=== PATIENT | male | born 1945 | race Caucasian/White ===

== ENCOUNTER 2019-06-27 09:53 | Day surgery (SDC) | payer OTHER ==
[~2019-06-27] VITALS: Ht 198.1 cm; Wt 68.0 kg
[~2019-06-27 09:53] MED LIST: ALBU90OI61 INH; ATOR80 PO; Aspirin325 MG PO; CLOP75 PO; LISI5 PO; NITR.4SL SL; Naprosyn500 MG PO; PROZAC20 MG PO; Percocet 5-3251 EACH PO; TRAZ100 PO; Toprol Xl25 MG PO
--- NOTE | 2019-06-27 10:15 | NUR ---
AMBULATED TO RECOVERY ROOM. SEE NOTES.
[2019-06-27] MEDS ORDERED: THERA1 EACH PO (10:24)
[2019-06-27] MEDS ORDERED: EZET10 PO (10:25)
--- NOTE | 2019-06-27 10:48 | NUR ---
Advanced directive completed by patient. on chart.
--- NOTE | 2019-06-27 16:10 | NUR ---
ADMIT- PT ADMITTED TO ICU FROM [facility] IN BED. AWAKE, ALERT, COOPERATIVE, NO DISTRESS, DENIES PAIN OR SOB. RESPIRATIONS UNLABORED. NSR, BP STABLE. ABDOMEN SOFT. RIGHT FEMORAL SITE DI WITH SMALL AMOUNT OLD BLOOD ON DRESSING. PEDAL PULSES PALPABLE, FEET WARM, DENIES ANY NUMBNESS OR TINGLING NOW. PIV INTACT
--- NOTE | 2019-06-27 16:38 | NUR ---
PT NAUSEATED WITH 100 CC YELLOWISH EMESIS. ASSISTED TO REPOSITION, HAD SAT UP, SITE INTACT WITHOUT ANY BLEEDING. C/O SEVERE ABDOMINAL PAIN-STATES LIKE"GAS" PAINS, TEARFUL. CALLED DR. GARCIA. WILL BE HERE, IV ZOFRAN GIVEN FOR NAUSEA-IS RELIEVED NOW. FAMILY AT BEDSIDE
--- NOTE | 2019-06-27 16:54 | NUR ---
STATES NAUSEA RELIEVED, STATES PAIN "COMES IN WAVES", DOING OK NOW. VS STABLE. SITE INTACT. PEDAL PULSES PALPABLE
--- NOTE | 2019-06-27 17:54 | NUR ---
DR GARCIA HERE-ASSESSED PT. PT AWAKE, ALERT, STATES FEELS PAIN WAS "GAS PAIN" AND WAS BETTER AFTER PASSING FLATUS. VSS, NO S/S BLEEDING. MAINTAINING PRECAUTIONS.
--- NOTE | 2019-06-27 18:37 | NUR ---
PT RESTING, STATES FEELS MUCH BETTER NOW. NO NAUSEA, STATES PAIN GONE AND IS ABLE TO REST. VSS. CONTINUE TO MONITOR
--- NOTE | 2019-06-27 20:55 | NUR ---
CARE ASSUMED REPORT RECEIVED, CARE ASSUMED AT 1900 FROM ROMIE MCGHEE. PT ON BEDREST AFTER PROCEDURE, BED FLAT. PT DENIES PAIN/DISCOMFORT. ALERT AND ORIENTED. VITALS STABLE. SEE SHIFT ASSESSMENT. RIGHT FEMORAL ACCESS SITE STABLE, SEE CATH SITE MANAGEMENT. PT AGREEABLE TO PRECAUTIONS, AGREES TO CALL FOR NEEDS. FAMILY AT BEDSIDE FOR SHORT VISIT THIS EVENING.
--- NOTE | 2019-06-27 23:58 | NUR ---
BLOOD PRESSURE PT'S BLOOD PRESSURE SLIGHTLY LOW BUT MAP'S REMAIN GREATER THAN 65. PT DENIES DIZZINESS/SHORTNESS OF BREATH. GROIN SITE ASSESSMENTS UNCHANGED. NO SIGNS OF BLEEDING. WILL CONTINUE TO MONITOR CLOSELY.
--- NOTE | 2019-06-28 04:36 | NUR ---
PROVIDER COMMUNICATION ATTEMPTED TO CONTACT DR. GARCIA REGARDING PT'S BLOOD PRESSURE TREND, INCREASED PVC'S, AND TO ATTEMPT TO ACQUIRE MORNING LAB ORDERS. AWAITING RETURN PHONE CALL. PT REMAINS ALERT, ORIENTED AND DENIES DIZZINESSS/SOB. WILL CONTINUE TO MONITOR CLOSELY.
--- NOTE | 2019-06-28 06:15 | NUR ---
SUMMARY SINCE PREVIOUS NOTE, BLOOD PRESSURE HAS IMPROVED. SEE FLOWSHEET. PT HAS DENIED DIZZINESS, SHORTNESS OF BREATH AND PAIN THROUGOUT ENTIRE NIGHT. OTHERWISE, VITALS STABLE. ASSESSMENTS UNCHANGED. GROIN SITE STABLE, PT MOVING FREELY IN BED. PT CALLING APPROPRIATELY FOR NEEDS.
--- NOTE | 2019-06-28 07:05 | NUR ---
REPORT TO ROMIE GRACE TO ASSUME CARE. BEDSIDE ROUNDS COMPLETED.
--- NOTE | 2019-06-28 09:30 | NUR ---
ASSUMED CARE: REPORT RECEIVED FROM RAFAELA Rodgers RN. ASSUMED CARE OF THIS PT AT APPROX 0700. ON ASSESSMENT, THE PT IS RESTING QUEITLY. HE AWAKENS EASILY TO VERBAL STIMULUS & IS ALERT/ ORIENTED. R FEMORAL PUNCTURE SITE IS WNL S/P PERIPHERAL REVASC. AREA HAS A SMALL AMNT OF DRIED BLOOD THAT IS UNCHANGED FROM PREVIOUS SHIFT, PER REPORT. NO NEW BLEEDING, BRUISING OR HEMATOMA FORMATION NOTED. PT DENIES N/T TO BLE, STS HAVING NO PAIN. PLAN IS FOR D/C HOME THIS AM. WILL CONTACT DR GARCIA TO GET VERIFY & GET ORDERS. WILL CONTINUE TO MONITOR & UPDATE NEEDED.
--- NOTE | 2019-06-28 12:02 | NUR ---
DISCHARGE TO HOME: D/C TEACHING HAS BEEN COMPLETED. PT & VERBALIZE UNDERSTANDING. PIV & ALL MONITORS HAVE BEEN REMOVED. DRESSING TO GROIN SITE IS CDI & SITE IS WNL. D/C PACKET & ALL BELONGINGS HAVE BEEN TAKEN OUT W/ PT. PT AMBULATES OUT OF UNIT W/ THIS RN.
== END 2019-06-28 11:46 | disposition home or self-care (01) ==
LOC: MHTC 09:53 → ICUW 09:53 → MHTC 10:00 → ICUW 14:57 → MHTC 19:27 → ICUE 19:28 → MHTC 06-28 11:46 → ICUE 06-28 11:46
DX: I70.1 Atherosclerosis of renal artery (principal); I70.0 Atherosclerosis of aorta; I25.10 Atherosclerotic heart disease of native coronary artery without angina pectoris; I10 Essential (primary) hypertension; D64.9 Anemia, unspecified; E78.5 Hyperlipidemia, unspecified; F41.9 Anxiety disorder, unspecified; F17.210 Nicotine dependence, cigarettes, uncomplicated; Z79.01 Long term (current) use of anticoagulants; Z79.82 Long term (current) use of aspirin; Z79.899 Other long term (current) drug therapy
CPT/HCPCS: 37236; 75630; 75774; 85347; 99152; 99153; C1725; C1769; C1876; C1887; C1894; J0360; J1644; J2250; J2405; J2720; J3010; J7030; Q9967

== ENCOUNTER 2022-05-18 08:29 | Day surgery (SDC) | payer OTHER ==
[~2022-05-18] VITALS: Ht 198.1 cm; Wt 66.7 kg
[~2022-05-18 08:29] MED LIST changes: +CILO100 PO; +EZET10 PO; +THERA1 EACH PO; +XARELTO20 MG PO
--- NOTE | 2022-05-18 12:24 | NUR ---
PT GIVEN HYDRALAZINE 10 MG IVP FOR ELEVATED BP PER DR ORDER.
--- NOTE | 2022-05-18 13:15 | NUR ---
DISCHARGE REVIEWED WITH PT, VERBALIZES UNDERSTANDING. SALINE LOCK REMOVED WITH CATHETER INTACT. PT GETTING DRESSED AT THIS TIME. BP HAS COME DOWN TO 150'S/90'S. L PT SITE STABLE.
--- NOTE | 2022-05-18 13:27 | NUR ---
PT TO PRIVATE VEHICLE PER W/C WITH ONE STAFF. L PT SITE STABLE.
== END 2022-05-18 13:30 | disposition home or self-care (01) ==
LOC: MHTC 08:29
DX: I70.213 Atherosclerosis of native arteries of extremities with intermittent claudication, bilateral legs (principal); I77.1 Stricture of artery; I65.21 Occlusion and stenosis of right carotid artery; I10 Essential (primary) hypertension; E78.5 Hyperlipidemia, unspecified; I25.10 Atherosclerotic heart disease of native coronary artery without angina pectoris; F17.210 Nicotine dependence, cigarettes, uncomplicated; F43.10 Post-traumatic stress disorder, unspecified; X58.XXXA Exposure to other specified factors, initial encounter; Z95.5 Presence of coronary angioplasty implant and graft; Z95.828 Presence of other vascular implants and grafts; Z87.891 Personal history of nicotine dependence
CPT/HCPCS: 75716; 75774; 76937; 99152; 99153; C1725; C1769; C1887; C1894; C9764; J0360; J1644; J2250; J3010; J7030; J7040; Q9967

== ENCOUNTER 2023-02-11 06:49 | Observation (INO) | payer OTHER ==
[~2023-02-11] VITALS: Ht 198.1 cm; Wt 62.5 kg
[2023-02-11 07:37] LABS: BASOPHILS ABSOLUTE AUTO 0.03 K/mm3 (0.00-0.23); BASOPHILS PERCENT AUTO 0 % (0-2); EOSINOPHILS ABSOLUTE AUTO 0.36 K/mm3 (0.00-0.68); EOSINOPHILS PERCENT AUTO 4 % (0-6); Hematocrit 35.2 % (37.0-53.0); Hemoglobin 11.7 g/dL (13.5-17.5); IMMATURE GRAN ABSOLUTE AUTO 0.03 K/mm3 (0.00-0.10); IMMATURE GRAN PERCENT AUTO 0 % (0-1); LYMPHOCYTES ABSOLUTE AUTO 2.03 K/mm3 (0.84-5.20); LYMPHOCYTES PERCENT AUTO 20 % (21-46); MONOCYTES ABSOLUTE AUTO 1.02 K/mm3 (0.16-1.47); MONOCYTES PERCENT AUTO 10 % (4-13); Mean Corpuscular HGB 33.7 pg (26.0-34.0); Mean Corpuscular HGB Conc 33.2 g/dL (31.5-36.5); Mean Corpuscular Volume 101 fL (80-100); Mean Platelet Volume 9.8 fL (9.1-12.4); NEUTROPHILS ABSOLUTE AUTO 6.59 K/mm3 (1.96-9.15); NEUTROPHILS PERCENT AUTO 66 % (41-73); Platelet Count 149 K/mm3 (150-400); RDW Coefficient Variation 13.7 % (11.7-14.2); RDW Standard Deviation 50.9 fL (35.1-46.3); Red Blood Cell Count 3.47 M/mm3 (4.30-5.90); White Blood Cell Count 10.06 K/mm3 (4.00-11.30)
[2023-02-11 07:52] LABS: Albumin, Blood 3.6 g/dL (3.4-5.0); Albumin/Globulin Ratio 1.1 (0.8-1.8); Bilirubin, Total 0.4 mg/dL (0.1-1.0); Bun/Creatinine Ratio 20.8 (12.0-20.0); Calcium, Blood 9.2 mg/dL (8.5-10.1); Creatinine, Blood 1.44 mg/dL (0.60-1.20); Globulin, Blood 3.4 g/dL (2.2-4.0); Potassium, Blood 4.2 mmol/L (3.5-5.5)
[2023-02-11 12:41] VITALS: BP 161/109
[2023-02-11 14:58] VITALS: BP 220/96
[2023-02-11 15:20] VITALS: BP 150/99
--- NOTE | 2023-02-11 18:45 | NUR ---
SHIFT SUMMARY: PATIENT ARRIVES TO ROOM AT AROUND 1228 FROM ER FOR DX OF CHF. PATIENT A&OX4. CALM, PLEASANT AND COOPERATIVE c CARE. USES CALL LIGHT APPROPRIATELY AND ABLE TO MAKE NEEDS KNOWN. PATIENT DENIES CP/PRESSURE, SOB, N/V AND GENERALIZED PAIN. ON TELE, SR HR OF 68 BPM c PVC, PER SILVER SERVICE WAITER DAVID. PATIENT ON 2L OF O2 VIA NC c SPO2 RANGES 95-100%. AT AROUND 1600 O2 WAS TITRATED TO 1L VIA NC c SPO2 RANGES 94-95%. LUNGS HAS FINE CRACKLES T/O TO AUSCULTATIONS. RCEIVED SCHEDULED MEDS PER EMAR. PATIENT HAD 700 MLS AND 2 UNMEASURED VOID SINCE ADMITTED TO THE UNIT. VITAL SIGNS REVIEWED. PATIENT IS CONTINENCE AND USES URINAL INDEPENDENTLY. CALL LIGHT IN REACH.
[2023-02-11 19:41] VITALS: BP 163/116
[2023-02-12 03:10] VITALS: BP 157/88
[2023-02-12 05:05] LABS: BASOPHILS ABSOLUTE AUTO 0.03 K/mm3 (0.00-0.23); BASOPHILS PERCENT AUTO 0 % (0-2); EOSINOPHILS ABSOLUTE AUTO 0.12 K/mm3 (0.00-0.68); EOSINOPHILS PERCENT AUTO 1 % (0-6); Hematocrit 36.6 % (37.0-53.0); Hemoglobin 12.8 g/dL (13.5-17.5); IMMATURE GRAN ABSOLUTE AUTO 0.04 K/mm3 (0.00-0.10); IMMATURE GRAN PERCENT AUTO 0 % (0-1); LYMPHOCYTES ABSOLUTE AUTO 1.24 K/mm3 (0.84-5.20); LYMPHOCYTES PERCENT AUTO 11 % (21-46); MONOCYTES ABSOLUTE AUTO 1.42 K/mm3 (0.16-1.47); MONOCYTES PERCENT AUTO 13 % (4-13); Mean Corpuscular HGB 34.4 pg (26.0-34.0); Mean Corpuscular Volume 98 fL (80-100); Mean Platelet Volume 10.3 fL (9.1-12.4); NEUTROPHILS ABSOLUTE AUTO 8.04 K/mm3 (1.96-9.15); NEUTROPHILS PERCENT AUTO 74 % (41-73); Platelet Count 163 K/mm3 (150-400); RDW Coefficient Variation 13.4 % (11.7-14.2); RDW Standard Deviation 48.9 fL (35.1-46.3); Red Blood Cell Count 3.72 M/mm3 (4.30-5.90); White Blood Cell Count 10.89 K/mm3 (4.00-11.30)
--- NOTE | 2023-02-12 05:16 | NUR ---
ASSUMED CARE OF THIS PT AT 0100. HE HAS BEEN SLEEPING FOR THE DURATION OF THIS SHIFT. BED IS IN THE LOW POSITON AND CALL LIGHT IS Ushi. PT HAD A 6 BEAT RUN OF [employer]. CURRENTLY RUNNING IN THE 70'S. PT REPORTED NO SYMPTOMS.
[2023-02-12 05:23] LABS: Base Excess Venous 4.5 mmol/L; Bicarbonate Venous 27.2 mmol/L (24.0-30.0); PCO2 Venous 45.7 mmHg (38-42); pH Blood Venous 7.41 (7.34-7.37)
[2023-02-12 05:27] LABS: Albumin, Blood 3.6 g/dL (3.4-5.0); Bilirubin, Total 0.9 mg/dL (0.1-1.0); Bun/Creatinine Ratio 18.1 (12.0-20.0); Calcium, Blood 9.2 mg/dL (8.5-10.1); Creatinine, Blood 1.55 mg/dL (0.60-1.20); Globulin, Blood 3.5 g/dL (2.2-4.0); Potassium, Blood 3.5 mmol/L (3.5-5.5); Total Protein, Blood 7.1 g/dL (6.4-8.2)
[2023-02-12 07:46] VITALS: BP 180/90
[2023-02-12] MEDS ORDERED: FURO40 PO (10:12)
[2023-02-12] MEDS ORDERED: Lisinopril2.5 MG PO (10:12)
[2023-02-12] MEDS ORDERED: POTA10T PO (10:12)
--- NOTE | 2023-02-12 10:34 | NUR ---
DISCHARGE NOTE- Pt was given verbal and written discharge instructions and acknowledged understanding of them. [place] [facility]. Pt requested the [facility] pharmacy [place]. Pt is currently laying in bed, call light in reach no s&s of distress, awaiting the arrival of his for a ride home. Tele and iv remain in place and will be dc'd prior to pt leaving the hospital. Pt has been instructed to press the call buttong when his arrives.
--- NOTE | 2023-02-12 12:02 | NUR ---
1150 PT WHEELED TO DOOR BY AID.
== END 2023-02-12 11:58 | disposition home or self-care (01) ==
LOC: ER 06:49 → MEDS 06:50
PROVIDERS: Student in an Organized Health Care Education/Training Program; ADMIT Internal Medicine
DX: I13.0 Hypertensive heart and chronic kidney disease with heart failure and stage 1 through stage 4 chronic kidney disease, or unspecified chronic kidney disease (principal); N18.30 Chronic kidney disease, stage 3 unspecified; I50.41 Acute combined systolic (congestive) and diastolic (congestive) heart failure; J96.01 Acute respiratory failure with hypoxia; I34.0 Nonrheumatic mitral (valve) insufficiency; J44.9 Chronic obstructive pulmonary disease, unspecified; R64 Cachexia; E78.5 Hyperlipidemia, unspecified; I70.209 Unspecified atherosclerosis of native arteries of extremities, unspecified extremity; I25.10 Atherosclerotic heart disease of native coronary artery without angina pectoris; F32.9 Major depressive disorder, single episode, unspecified; Z95.5 Presence of coronary angioplasty implant and graft; Z87.891 Personal history of nicotine dependence; Z79.01 Long term (current) use of anticoagulants; Z79.899 Other long term (current) drug therapy
CPT/HCPCS: 36415; 71260; 80053; 82803; 83735; 83880; 84145; 84484; 85025; 85379; 93005; 93010; 94760; 96374-59; 96376; 99285-25; A9270; G0378; J1940; Q9967

== ENCOUNTER 2023-02-15 23:36 | Observation (INO) | payer OTHER ==
[~2023-02-15] VITALS: Ht 198.1 cm; Wt 65.8 kg
[~2023-02-15 23:36] MED LIST changes: +FURO40 PO; +Lisinopril2.5 MG PO; +POTA10T PO
[2023-02-16 00:54] LABS: BASOPHILS ABSOLUTE AUTO 0.02 K/mm3 (0.00-0.23); BASOPHILS PERCENT AUTO 0 % (0-2); EOSINOPHILS ABSOLUTE AUTO 0.14 K/mm3 (0.00-0.68); EOSINOPHILS PERCENT AUTO 3 % (0-6); Hematocrit 28.9 % (37.0-53.0); Hemoglobin 10.1 g/dL (13.5-17.5); IMMATURE GRAN ABSOLUTE AUTO 0.03 K/mm3 (0.00-0.10); IMMATURE GRAN PERCENT AUTO 1 % (0-1); LYMPHOCYTES ABSOLUTE AUTO 0.78 K/mm3 (0.84-5.20); LYMPHOCYTES PERCENT AUTO 15 % (21-46); MONOCYTES PERCENT AUTO 10 % (4-13); Mean Corpuscular HGB 34.6 pg (26.0-34.0); Mean Corpuscular HGB Conc 34.9 g/dL (31.5-36.5); Mean Corpuscular Volume 99 fL (80-100); Mean Platelet Volume 10.1 fL (9.1-12.4); NEUTROPHILS ABSOLUTE AUTO 3.66 K/mm3 (1.96-9.15); NEUTROPHILS PERCENT AUTO 71 % (41-73); Platelet Count 156 K/mm3 (150-400); RDW Standard Deviation 47.1 fL (35.1-46.3); Red Blood Cell Count 2.92 M/mm3 (4.30-5.90); White Blood Cell Count 5.13 K/mm3 (4.00-11.30)
[2023-02-16 01:13] LABS: Albumin, Blood 3.4 g/dL (3.4-5.0); Bilirubin, Total 0.2 mg/dL (0.1-1.0); Bun/Creatinine Ratio 22.6 (12.0-20.0); Calcium, Blood 8.7 mg/dL (8.5-10.1); Creatinine, Blood 2.57 mg/dL (0.60-1.20); Globulin, Blood 3.5 g/dL (2.2-4.0); Total Protein, Blood 6.9 g/dL (6.4-8.2)
[2023-02-16 04:26] LABS: Magnesium, Blood 2.3 mg/dL (1.6-2.4)
--- NOTE | 2023-02-16 11:26 | NUR ---
ADMIT ER PT REPORT RECEIVED. PT ARRIVED VIA GURNEY ACCOMPANIED BY TECH. PT ALERT AND ORIENTED. ABLE TO GET UP AND TRANSFER TO NEW BED. NO COMPLAINTS. CONTINUE POC.
[2023-02-16 15:08] VITALS: BP 155/86
[2023-02-16 15:43] LABS: Bun/Creatinine Ratio 24.4 (12.0-20.0); Calcium, Blood 8.6 mg/dL (8.5-10.1); Creatinine, Blood 1.72 mg/dL (0.60-1.20); Potassium, Blood 4.1 mmol/L (3.5-5.5)
--- NOTE | 2023-02-16 16:29 | NUR ---
Palliative Care Consult for AD/POST. Pt admitted to the hospital for Acute Renal Failure. Pt's medical history and comorbidities include: Diastolic CHF, COPD, PVD, Depression, Hyperlipidemia. Pt recently D/C from the hospital with the new diagnosis of CHF. Pt resting in bed and is A&OX4. Pt reports being and has a daughter who lives out of state. He reports having a son who . Offerd condolences and continued therapeutic listening. Engaged in therapeutic conversation regarding advanced care planning. Educated on disease process including trajectory. Discussed the importance of having routine conversations with PCP and planning for the future as disease progresses including the potential need to consider hospice in the future. Continued therapeutic listening and answered questions. Discussed code status wishes. Educated on life sustaining treatments including risks and implications to CPR/Intubation. Pt reports his wishes are DNR. Discussed completing POLST. He reports plan to consider completing POLST after speaking with his . He reports becomes anxious with forms such as a POLST. Provided POLST to Pt and offered assistance with speaking with . Pt will consider offer. No other concerns reported at this time. Spoke with Dr Villar and discussed case. Placed DNR order in [facility] per V/O from Dr Villar. Palliative Care will remain available.
[2023-02-16 19:28] VITALS: BP 99/76
[2023-02-17 06:05] LABS: BASOPHILS ABSOLUTE AUTO 0.02 K/mm3 (0.00-0.23); BASOPHILS PERCENT AUTO 0 % (0-2); EOSINOPHILS ABSOLUTE AUTO 0.26 K/mm3 (0.00-0.68); EOSINOPHILS PERCENT AUTO 4 % (0-6); Hematocrit 31.3 % (37.0-53.0); Hemoglobin 10.8 g/dL (13.5-17.5); IMMATURE GRAN ABSOLUTE AUTO 0.02 K/mm3 (0.00-0.10); IMMATURE GRAN PERCENT AUTO 0 % (0-1); LYMPHOCYTES ABSOLUTE AUTO 1.64 K/mm3 (0.84-5.20); LYMPHOCYTES PERCENT AUTO 25 % (21-46); MONOCYTES ABSOLUTE AUTO 0.65 K/mm3 (0.16-1.47); MONOCYTES PERCENT AUTO 10 % (4-13); Mean Corpuscular HGB 34.3 pg (26.0-34.0); Mean Corpuscular HGB Conc 34.5 g/dL (31.5-36.5); Mean Corpuscular Volume 99 fL (80-100); NEUTROPHILS ABSOLUTE AUTO 4.05 K/mm3 (1.96-9.15); NEUTROPHILS PERCENT AUTO 61 % (41-73); Platelet Count 157 K/mm3 (150-400); RDW Coefficient Variation 12.8 % (11.7-14.2); RDW Standard Deviation 46.7 fL (35.1-46.3); Red Blood Cell Count 3.15 M/mm3 (4.30-5.90); White Blood Cell Count 6.64 K/mm3 (4.00-11.30)
[2023-02-17 06:34] LABS: Albumin, Blood 3.2 g/dL (3.4-5.0); Albumin/Globulin Ratio 1.1 (0.8-1.8); Bilirubin, Total 0.5 mg/dL (0.1-1.0); Bun/Creatinine Ratio 20.6 (12.0-20.0); Calcium, Blood 8.7 mg/dL (8.5-10.1); Creatinine, Blood 1.41 mg/dL (0.60-1.20); Globulin, Blood 2.8 g/dL (2.2-4.0)
--- NOTE | 2023-02-17 06:48 | NUR ---
AO, VSS, PLEASANT, INDEPENDENT TO TOILET, USED URINAL FREQUENTLY. GI PANEL PENDING TO R/O C DIFF, IN CONTACT PRECAUTIONS. PT DENIES RECENT DIARRHEA. LR 3 LITERS GIVEN YESTERDAY/LAST NIGHT. CALM, NO PRN PAIN MEDS REQUESTED.
[2023-02-17 08:37] VITALS: BP 135/95
[2023-02-17] MEDS ORDERED: METOPROLOL SUCC25 MG PO (12:50)
--- NOTE | 2023-02-17 13:10 | NUR ---
PT DISCHARGE REVIEWED WITH PT AND SPOUSE. VERBALIZED UNDERSTANDING MEDS AND INST. IV PULLED INTACT. TELE REMOVED. PT WHEELED TO DOOR AT 1315
== END 2023-02-17 13:15 | disposition home or self-care (01) ==
LOC: ER 23:36 → MEDS 23:37
PROVIDERS: Family Medicine; Student in an Organized Health Care Education/Training Program; ADMIT Internal Medicine
DX: N17.9 Acute kidney failure, unspecified (principal); I13.0 Hypertensive heart and chronic kidney disease with heart failure and stage 1 through stage 4 chronic kidney disease, or unspecified chronic kidney disease; N18.30 Chronic kidney disease, stage 3 unspecified; I50.30 Unspecified diastolic (congestive) heart failure; R25.2 Cramp and spasm; D64.9 Anemia, unspecified; R91.1 Solitary pulmonary nodule; R64 Cachexia; J44.9 Chronic obstructive pulmonary disease, unspecified; E78.5 Hyperlipidemia, unspecified; Z66 Do not resuscitate; I25.2 Old myocardial infarction; I73.9 Peripheral vascular disease, unspecified; I25.10 Atherosclerotic heart disease of native coronary artery without angina pectoris; Z95.5 Presence of coronary angioplasty implant and graft; Z87.891 Personal history of nicotine dependence; Z79.899 Other long term (current) drug therapy
CPT/HCPCS: 36415; 76770; 80048; 80053; 82550; 82607; 82746; 83605; 83735; 85025; 93005; 93010; 93925; 96361; 96374; 97112; 97162; 99285-25; A9270; G0378; J1170; J7030; J7120

== ENCOUNTER 2023-03-27 06:58 | Day surgery (SDC) | payer OTHER ==
[~2023-03-27] VITALS: Ht 198.1 cm; Wt 64.4 kg
[2023-03-27] VITALS (7 sets, daily range): BP systolic 123–157; BP diastolic 79–100
[~2023-03-27 06:58] MED LIST changes: +METOPROLOL SUCC25 MG PO
--- NOTE | 2023-03-27 12:00 | NUR ---
PT AND VERBALIZED UNDERSTANDING OR WRITTEN AND VERBAL D/C INST. -BLEEDING OR SWELLING L PEDAL AREA. IV REMOVED. PT TAKEN OUT OF THE HRT CENTER VIA W/C.
== END 2023-03-27 12:15 | disposition home or self-care (01) ==
LOC: MHTC 06:58
DX: I70.223 Atherosclerosis of native arteries of extremities with rest pain, bilateral legs (principal); I65.21 Occlusion and stenosis of right carotid artery; I10 Essential (primary) hypertension; E78.5 Hyperlipidemia, unspecified; I25.10 Atherosclerotic heart disease of native coronary artery without angina pectoris; F17.210 Nicotine dependence, cigarettes, uncomplicated
CPT/HCPCS: 76937; 99152; 99153; C1725; C1769; C1887; C1894; C2623; J1644; J2250; J3010; J7030; J7050; Q9967

== ENCOUNTER 2023-04-24 05:48 | Inpatient (IN) | payer OTHER ==
[2023-04-24] VITALS (26 sets, daily range): BP systolic 88–216; BP diastolic 71–125
[~2023-04-24] VITALS: Ht 188 cm; Wt 62.6 kg
[~2023-04-24 05:48] MED LIST changes: +MULVITA PO; -THERA1 EACH PO
[2023-04-24] MEDS ORDERED: POTA10T PO (06:06)
[2023-04-24 06:20] LABS: BASOPHILS ABSOLUTE AUTO 0.03 K/mm3 (0.00-0.23); BASOPHILS PERCENT AUTO 0 % (0-2); EOSINOPHILS PERCENT AUTO 6 % (0-6); Hematocrit 31.1 % (37.0-53.0); Hemoglobin 10.8 g/dL (13.5-17.5); IMMATURE GRAN ABSOLUTE AUTO 0.05 K/mm3 (0.00-0.10); IMMATURE GRAN PERCENT AUTO 1 % (0-1); LYMPHOCYTES ABSOLUTE AUTO 1.16 K/mm3 (0.84-5.20); LYMPHOCYTES PERCENT AUTO 11 % (21-46); MONOCYTES ABSOLUTE AUTO 0.69 K/mm3 (0.16-1.47); MONOCYTES PERCENT AUTO 7 % (4-13); Mean Corpuscular HGB 34.4 pg (26.0-34.0); Mean Corpuscular HGB Conc 34.7 g/dL (31.5-36.5); Mean Corpuscular Volume 99 fL (80-100); Mean Platelet Volume 10.7 fL (9.1-12.4); NEUTROPHILS ABSOLUTE AUTO 7.61 K/mm3 (1.96-9.15); NEUTROPHILS PERCENT AUTO 75 % (41-73); Platelet Count 122 K/mm3 (150-400); RDW Coefficient Variation 12.3 % (11.7-14.2); RDW Standard Deviation 44.8 fL (35.1-46.3); Red Blood Cell Count 3.14 M/mm3 (4.30-5.90); White Blood Cell Count 10.14 K/mm3 (4.00-11.30)
[2023-04-24 06:35] LABS: Base Excess Venous -1.8 mmol/L; Bicarbonate Venous 21.9 mmol/L (24.0-30.0); PCO2 Venous 56.9 mmHg (38-42); pH Blood Venous 7.26 (7.34-7.37)
[2023-04-24 06:43] LABS: Albumin, Blood 3.6 g/dL (3.4-5.0); Bilirubin, Total 0.4 mg/dL (0.1-1.0); Bun/Creatinine Ratio 18.3 (12.0-20.0); Calcium, Blood 9.4 mg/dL (8.5-10.1); Creatinine, Blood 1.97 mg/dL (0.60-1.20); Globulin, Blood 3.6 g/dL (2.2-4.0); Potassium, Blood 3.3 mmol/L (3.5-5.5); Total Protein, Blood 7.2 g/dL (6.4-8.2)
[2023-04-24 08:08] LABS: International Normalized Ratio 1.01; Prothrombin Time Results 10.6 Sec (9.7-11.5)
--- NOTE | 2023-04-24 13:06 | NUR ---
PT ARRIVED TO ICU 15 FROM ER AT 0915. PT A/O X4, ABLE TO TRANSFER SELF TO BED. DENIES CP OR N/V. PT STATES HE HAS BEEN LOSING WEIGHT UNINTENTIONALLY THE LAST FEW MONTHS, STILL HAS GOOD APPETITE. GETS SOB WITH EXERTION, 2L NC ON. POTASSIUM IV RUNNING ON ARRIVAL. CONTINUES TO BE HYPERTENSIVE, NITRO GTT STARTED. HEPARIN STARTED PER PHARMACY.
--- NOTE | 2023-04-24 13:30 | NUR ---
IGNITION RISK: PT DENIES SMOKING AND DENIES HAVING ANY SOURCE OF IGNITION IN BELONGINS. EDUCATED ON SAFETY WITH OXYGEN.
--- NOTE | 2023-04-24 17:53 | NUR ---
SUMMARY PT A/O X4. REPOSITIONS INDEP. DENIES CP. ON HEPARIN GTT PER PHARMACY. WAS ONLY ON NITRO GTT FOR SHORT AMT OF TIME AFTER ARRIVING TO ICU. STARTED PO METOPROLOL THIS AFTERNOON AND LASIX HAS BEEN GIVEN. PUTTING OUT GOOD AMT OF YELLOW URINE. ON 2L NC FOR COMFORT WITH SOB WITH EXERTION, SPO2 GREATER THAN 90% SINCE BEING IN ICU. NO SIGN OF DISTRESS. USES CALL LIGHT APPROPRIATELY.
--- NOTE | 2023-04-24 20:45 | NUR ---
PATIENT AWAKE EATING DINNER WITH , SUBWAY SANDWICHES. C/O LEG CRAMPS EARLIER RELIEF WITH WARM BLANKETS. PATIENT NOW SHIVERING, FEELING COLD TEMP 98.6. HEAT IN ROOM INCREASED PROVIDING RELIEF OF SHIVER. CONTINUES TO HAVE SHAKINESS WHEN STANDING TO URINATE. EDUCATION GIVEN ON LOW SALT DIET. HEPARIN DRIP PER PHARMACY. NITRO DRIP REMAINS OFF. 2L/NC IN PLACE BIOX DOWN TO 88% WITH ACTIVITY BIOX 100% AT REST
--- NOTE | 2023-04-24 21:06 | NUR ---
EDUCATION ON FIRE RISK WITH OXYGEN USE
[2023-04-25] VITALS (14 sets, daily range): BP systolic 91–154; BP diastolic 64–91
[2023-04-25 04:22] LABS: Base Excess Venous 2.1 mmol/L; PO2 Venous 55.1 mmHg (38-42); pH Blood Venous 7.43 (7.34-7.37)
[2023-04-25 04:27] LABS: BASOPHILS ABSOLUTE AUTO 0.02 K/mm3 (0.00-0.23); BASOPHILS PERCENT AUTO 0 % (0-2); EOSINOPHILS ABSOLUTE AUTO 0.16 K/mm3 (0.00-0.68); EOSINOPHILS PERCENT AUTO 2 % (0-6); Hematocrit 25.9 % (37.0-53.0); Hemoglobin 9.3 g/dL (13.5-17.5); IMMATURE GRAN ABSOLUTE AUTO 0.03 K/mm3 (0.00-0.10); IMMATURE GRAN PERCENT AUTO 0 % (0-1); LYMPHOCYTES ABSOLUTE AUTO 1.24 K/mm3 (0.84-5.20); LYMPHOCYTES PERCENT AUTO 15 % (21-46); MONOCYTES ABSOLUTE AUTO 0.89 K/mm3 (0.16-1.47); MONOCYTES PERCENT AUTO 11 % (4-13); Mean Corpuscular HGB 34.1 pg (26.0-34.0); Mean Corpuscular HGB Conc 35.9 g/dL (31.5-36.5); Mean Corpuscular Volume 95 fL (80-100); Mean Platelet Volume 10.2 fL (9.1-12.4); NEUTROPHILS ABSOLUTE AUTO 5.83 K/mm3 (1.96-9.15); NEUTROPHILS PERCENT AUTO 71 % (41-73); Platelet Count 113 K/mm3 (150-400); RDW Coefficient Variation 12.4 % (11.7-14.2); RDW Standard Deviation 43.5 fL (35.1-46.3); Red Blood Cell Count 2.73 M/mm3 (4.30-5.90); White Blood Cell Count 8.17 K/mm3 (4.00-11.30)
[2023-04-25 04:51] LABS: Albumin, Blood 3.1 g/dL (3.4-5.0); Anion Gap 9 mmol/L (6-16); Blood Urea Nitrogen 27 mg/dL (8-24); Bun/Creatinine Ratio 15.1 (12.0-20.0); CO2, Blood 24 mmol/L (21-32); Calcium, Blood 8.5 mg/dL (8.5-10.1); Chloride, Blood 105 mmol/L (98-108); Creatinine, Blood 1.79 mg/dL (0.60-1.20); Glomerular Filtration Rate 39 (60-); Glucose, Blood 110 mg/dL (70-99); Magnesium, Blood 1.7 mg/dL (1.6-2.4); Phosphorus, Blood 3.1 mg/dL (2.5-4.9); Sodium, Blood 138 mmol/L (136-145)
--- NOTE | 2023-04-25 06:12 | NUR ---
SUMMARY PATIENT SLEEPING MOST OF NIGHT WITH 2L/NC IN PLACE. AWAKENS TO SLIGHT STIMULI. VERBALIZED THAT HE IS FEELING MUCH BETTER THIS MORNING. CONTINUES TO BE SHAKY WHEN UP BUT ABLE TO GET IN AND OUT OF BED TO USE URINAL WITHOUT DIFFICULTY. HEPARIN DRIP CONTINUES PER PHARMACY.
--- NOTE | 2023-04-25 18:15 | NUR ---
SUMMARY PT RESTING IN BED. DENIES CP. OFF HEPARIN GTT AND RESTARTED ON XARELTO. PT EVALUATED BY PT TODAY. CONSULT FOR CARDIOLOGY PLACED BY DR. RAMACHANDRAN. OFF O2 NOW. BP CONTROLLED WITH METOPROLOL. NO SIGN OF DISTRESS. USES CALL LIGHT APPROPRIATELY.
--- NOTE | 2023-04-25 18:53 | NUR ---
IGNITION RISK: PT DENIES SMOKING OR HAVING A SOURCE OF IGNITION IN BELONGINGS. EDUCATED ABOUT RISKS. PT VERBALIZES UNDERSTANDING.
--- NOTE | 2023-04-25 22:10 | NUR ---
ASSUMED CARE AT 1900 PT LAYING IN BED SLEEPING DURING SHIFT CHANGE. HE IS A/O X4 AND ABLE TO MAKE HIS NEEDS KNOWN; VERY PLESENT. NO C/O DYSPNEA OR CHEST TIGHTNESS; SPO2 >94% ON RA. AFEBRILE. HR 70-80'S. BP STABLE WITH SBP 90'S. TOLERATING PO INTAKE WELL. USES URINAL INDEPENDENTLY. REPOSITIONS SELF INDEPENDENTLY. PIV TO LEFT AC REMOVED D/T NOT FLUSHING. SEE SHIFT ASSESSMENT FOR FULL ASSESSMENT. DISCUSSION AND EDUCATION REGARDING FIRE IGNITIONS IN THE HOSPITAL SETTING. NO IGNITION DEVICES ON PT OR IN BELONGINGS. VERBAL UNDERSTANDING OF EDUCATION FROM PT.
[2023-04-26] VITALS (8 sets, daily range): BP systolic 91–143; BP diastolic 62–94
[2023-04-26 04:13] LABS: Base Excess Venous 1.5 mmol/L; Bicarbonate Venous 25.7 mmol/L (24.0-30.0); PCO2 Venous 37.9 mmHg (38-42); pH Blood Venous 7.44 (7.34-7.37)
[2023-04-26 04:19] LABS: Hematocrit 27.8 % (37.0-53.0); Hemoglobin 9.9 g/dL (13.5-17.5); Mean Corpuscular HGB 34.6 pg (26.0-34.0); Mean Corpuscular HGB Conc 35.6 g/dL (31.5-36.5); Mean Corpuscular Volume 97 fL (80-100); Mean Platelet Volume 10.5 fL (9.1-12.4); Platelet Count 133 K/mm3 (150-400); RDW Coefficient Variation 12.2 % (11.7-14.2); RDW Standard Deviation 44.1 fL (35.1-46.3); Red Blood Cell Count 2.86 M/mm3 (4.30-5.90); White Blood Cell Count 10.34 K/mm3 (4.00-11.30)
--- NOTE | 2023-04-26 05:14 | NUR ---
TRANSFER REPORT GIVEN TO SHANNON GRUBBS AT 0500. PT LEFT ICU AT 0510 VIA WHEELCHAIR WITH ALL BELONGINGS.
--- NOTE | 2023-04-26 05:16 | NUR ---
TX FROM ICU PT TX FROM ICU @ 7535. PT IS A/OX4. TOLERATED MOVE WELL, REPORT GIVEN FROM KOKI GRUBBS. PT REQUESTED TO RETURN BACK TO SLEEP.
[2023-04-26 05:55] LABS: Bun/Creatinine Ratio 15.4 (12.0-20.0); Calcium, Blood 8.8 mg/dL (8.5-10.1); Creatinine, Blood 1.69 mg/dL (0.60-1.20); Potassium, Blood 3.2 mmol/L (3.5-5.5)
--- NOTE | 2023-04-26 17:19 | NUR ---
SHIFT SUMMARY PT IS A&OX4, BUT IS WEAK ON HIS FEET AND NEEDS 1P ASSISTANCE W/ FWW WHEN TRANSFERING. HE HAD SOME WATERY STOOLS THIS AM AND WAS GIVEN BANANA FLAKES TO HELP THICKEN IT UP. VS HAVE BEEN STABLE. ON TELE THE PT HAS BEEN SR W/ BBB, AND A PROLONGED QTC, WHICH HAS IMPROVED SINCE LAST NIGHT. SEE CHART FOR DETAILS. PT GOT UP INTO THE SHOWER TODAY AND THEN USED THE TOILET. HE WAS HAVING HOT FLASHES AND LOST ALL FEELING IN HIS LEGS. IT TOOK TWO PEOPLE TO GET HIM BACK TO BED. THE PT STATES HE NORMALLY HAS N/T IN HIS LEGS BUT IT WAS WORSE AFTER SITTING ON THE TOILET. PT WAS MADE MEDICAL STATUS AND IS PENDING A BED UPSTAIRS. BED IN LOW, CALL LIGHT IN REACH, AND PT HAS BEEN ASSESSED/EDUCATED ON FIRE IGNITION RISK, SAFETY, AND RISK OF INJURY. SEE NOTES FOR ANY UPDATES.
--- NOTE | 2023-04-26 21:36 | NUR ---
Patient arrived to room 337 at 2102. Report prior to arrival from Katia Headley RN in PCU. Patient is A&OX4, and resting comfortably with no complaints of pain or SOB at time of arrival. will continue close monitoring
[2023-04-27 04:18] VITALS: BP 105/80
--- NOTE | 2023-04-27 05:13 | NUR ---
LATE CHART NOTE: NO CHANGES TO NOTE FROM 2044 ASSESSMENT OF MR LE JUST PRIOR TO HIS TRANSFER TO ROOM 337. NO COMPLAINTS OF PAIN OR DISCOMFORT OR SOB OVERNIGHT. WILL CONTINUE CLOSE MOONITORING
--- NOTE | 2023-04-27 06:36 | NUR ---
MARQUITA SLEPT WELL OVERNIGHT, AND HAD NO COMPLAINTS OF PAIN, SOB OR DISCOMFORT. VSS ON ARRIVAL TO FLOOR. DISCUSSION WITH PATIENT ABOUT SOURCES OF IGNITION AND SAFETY MEASURES IN PLACE TO PREVENT FIRES WHILE IN THE HOSPITAL. PATIENT IS NOT USING 02, BUT VERBALIZED THE IMPORTANCE OF PREVENTION
[2023-04-27 07:17] VITALS: BP 100/86
--- NOTE | 2023-04-27 07:33 | NUR ---
ASSUMED CARE: PT RESTING QUIETLY IN BED AT THIS TIME. ON RA, NO ACUTE NEEDS OR DISTRESS. AWAITING CARDIOLOGY CONSULT.
[2023-04-27 08:40] LABS: Calcium, Blood 8.7 mg/dL (8.5-10.1); Creatinine, Blood 1.67 mg/dL (0.60-1.20); Potassium, Blood 3.2 mmol/L (3.5-5.5)
--- NOTE | 2023-04-27 12:15 | NUR ---
IGNITION RISK: PT DENIES POSSESSION OF CIGARRETTES/MATCHES/LIGHTERS. NO VISIBLE EVIDENCE OF PRODUCTS EITHER
--- NOTE | 2023-04-27 12:24 | NUR ---
DR RAMACHANDRAN CHECKED IN WITH THIS RN AND STATED HE WAS OK WITH DISCHARGING PT IF FAMILY WAS AGREEABLE. INSTRUCTED PT TO CALL FAMILY SO THAT COULD SPEAK WITH THEM. PT STATES HE WILL CALL AND LET STAFF KNOW WHEN THEY ARRIVE
[2023-04-27] MEDS ORDERED: TORSE20 PO (14:25)
--- NOTE | 2023-04-27 15:00 | NUR ---
DISCHARGE INSTRUCTIONS PROVIDED INCLUDING NEW MEDICATIONS AND FOLLOW UP APPOINTMENTS. POINTED OUT PHONE NUMBERS TO CALL WITH CONCERNS. PG REMOVED WNL. DENIED FURTHER NEEDS OR CONCERNS. ESCORTED OUT VIA WHEELCHAIR BY THIS RN.
== END 2023-04-27 14:45 | disposition home health service (06) | DRG 280 ==
LOC: ER 05:48 → ICUE 07:45 → PCU 04-26 05:16 → MEDS 04-26 20:58
PROVIDERS: Emergency Medicine; ADMIT Internal Medicine
PROC: 5A09357 Assistance with Respiratory Ventilation, Less than 24 Consecutive Hours, Continuous Positive Airway Pressure (ICD-10-PCS; principal; 2023-04-24)
DX: I13.0 Hypertensive heart and chronic kidney disease with heart failure and stage 1 through stage 4 chronic kidney disease, or unspecified chronic kidney disease (principal); J96.01 Acute respiratory failure with hypoxia; I21.A1 Myocardial infarction type 2; J96.02 Acute respiratory failure with hypercapnia; I16.1 Hypertensive emergency; R64 Cachexia; Z68.1 Body mass index [BMI] 19.9 or less, adult; Z66 Do not resuscitate; I50.9 Heart failure, unspecified; E78.5 Hyperlipidemia, unspecified; N18.9 Chronic kidney disease, unspecified; D63.1 Anemia in chronic kidney disease; I25.10 Atherosclerotic heart disease of native coronary artery without angina pectoris; J44.9 Chronic obstructive pulmonary disease, unspecified; E87.6 Hypokalemia; R77.9 Abnormality of plasma protein, unspecified; S29.009A Unspecified injury of muscle and tendon of unspecified wall of thorax, initial encounter; X58.XXXA Exposure to other specified factors, initial encounter; I73.9 Peripheral vascular disease, unspecified; Z79.01 Long term (current) use of anticoagulants; Z79.02 Long term (current) use of antithrombotics/antiplatelets; Z79.899 Other long term (current) drug therapy; Z87.19 Personal history of other diseases of the digestive system; Z86.79 Personal history of other diseases of the circulatory system; I25.2 Old myocardial infarction; Z95.1 Presence of aortocoronary bypass graft; Z98.890 Other specified postprocedural states; Z87.891 Personal history of nicotine dependence; Z95.820 Peripheral vascular angioplasty status with implants and grafts; Z95.5 Presence of coronary angioplasty implant and graft
CPT/HCPCS: 36415; 71045; 80048; 80053; 80069; 82803; 83735; 83880; 84484; 85025; 85027; 85379; 85610; 85730; 93005; 93010; 93306; 94640; 94660; 94762; 96374; 96375; 97110; 97116; 97162; 99285-25; A9270; C1751; J1644; J1940; J3480

== ENCOUNTER 2023-06-28 04:03 | Inpatient (IN) | payer OTHER ==
[~2023-06-28] VITALS: Ht 198.1 cm; Wt 61.1 kg
[~2023-06-28 04:03] MED LIST changes: +TORSE20 PO
[2023-06-28 04:38] LABS: BASOPHILS ABSOLUTE AUTO 0.04 K/mm3 (0.00-0.23); BASOPHILS PERCENT AUTO 1 % (0-2); EOSINOPHILS PERCENT AUTO 8 % (0-6); Hematocrit 33.2 % (37.0-53.0); Hemoglobin 11.2 g/dL (13.5-17.5); IMMATURE GRAN ABSOLUTE AUTO 0.02 K/mm3 (0.00-0.10); IMMATURE GRAN PERCENT AUTO 0 % (0-1); LYMPHOCYTES ABSOLUTE AUTO 1.35 K/mm3 (0.84-5.20); LYMPHOCYTES PERCENT AUTO 17 % (21-46); MONOCYTES ABSOLUTE AUTO 0.63 K/mm3 (0.16-1.47); MONOCYTES PERCENT AUTO 8 % (4-13); Mean Corpuscular HGB 34.1 pg (26.0-34.0); Mean Corpuscular HGB Conc 33.7 g/dL (31.5-36.5); Mean Corpuscular Volume 101 fL (80-100); Mean Platelet Volume 10.1 fL (9.1-12.4); NEUTROPHILS PERCENT AUTO 66 % (41-73); Platelet Count 143 K/mm3 (150-400); RDW Coefficient Variation 13.4 % (11.7-14.2); RDW Standard Deviation 49.8 fL (35.1-46.3); Red Blood Cell Count 3.28 M/mm3 (4.30-5.90); White Blood Cell Count 7.84 K/mm3 (4.00-11.30)
[2023-06-28 04:49] LABS: Bun/Creatinine Ratio 9.6 (12.0-20.0); Creatinine, Blood 1.56 mg/dL (0.60-1.20); Potassium, Blood 3.9 mmol/L (3.5-5.5)
[2023-06-28] MEDS ORDERED: TAMS.4ER PO (05:00)
[2023-06-28] MEDS ORDERED: B-12500 MC2 PO (05:00)
[2023-06-28 11:12] VITALS: BP 123/99
[2023-06-28 15:46] VITALS: BP 127/97
--- NOTE | 2023-06-28 16:08 | NUR ---
PER MANAGER FIELD SERVICES PT IS IN NSR, HR 68. PT CONTINUES TO DENY CP, SOB AT THIS TIME. ON 1 LPM VIA [place].
--- NOTE | 2023-06-28 17:49 | NUR ---
SHIFT SUMMARY: PT A/O X 4, STANDBY ASSIST. PLEASANT AND COOPERATIVE. PT HAS NOT REPORTED ANY CP THROUGHOUT THE DAY SINCE ADMISSION TO UNIT. PT HAS REPORTED DYSPNEA WITH EXERTION, RECOVERS QUICKLY. PT ON 1 LPM VIA NC FOR COMFORT. SATS ON RA WERE 92% 0N ARRIVAL TO UNIT. PT URINATING WELL LIGHT CLEAR YELLOW URINE. PT TROPONINS HAVE CONTINUED TO RISE WITH LAST RESULT AT 270. PT HAS NO EDEMA IN LOWER EXTREMITIES. PT IN THIS AFTERNOON AND BROUGHT PT DINNER OF EGGS FRENCHTOAST AND HAM AND ACKNOWLEDGED "IT WAS NOT A CARDIAC DIET PLAN BUT IT WAS WHAT MY WANTED." PT REPORTED HE HAS HAD SEVERAL STENT PLACEMENTS IN THE PAST BY DR. GARCIA WHICH PT DID NOT REPORT ON ADMIT.
[2023-06-28 17:59] LABS: International Normalized Ratio 1.02; Prothrombin Time Results 10.7 Sec (9.7-11.5)
[2023-06-28 19:10] VITALS: BP 103/77
[2023-06-29 02:16] LABS: BASOPHILS ABSOLUTE AUTO 0.03 K/mm3 (0.00-0.23); BASOPHILS PERCENT AUTO 0 % (0-2); EOSINOPHILS ABSOLUTE AUTO 0.39 K/mm3 (0.00-0.68); EOSINOPHILS PERCENT AUTO 4 % (0-6); Hematocrit 31.7 % (37.0-53.0); Hemoglobin 10.9 g/dL (13.5-17.5); IMMATURE GRAN ABSOLUTE AUTO 0.02 K/mm3 (0.00-0.10); IMMATURE GRAN PERCENT AUTO 0 % (0-1); LYMPHOCYTES ABSOLUTE AUTO 1.72 K/mm3 (0.84-5.20); LYMPHOCYTES PERCENT AUTO 18 % (21-46); MONOCYTES ABSOLUTE AUTO 1.05 K/mm3 (0.16-1.47); MONOCYTES PERCENT AUTO 11 % (4-13); Mean Corpuscular HGB Conc 34.4 g/dL (31.5-36.5); Mean Corpuscular Volume 99 fL (80-100); Mean Platelet Volume 10.6 fL (9.1-12.4); NEUTROPHILS ABSOLUTE AUTO 6.41 K/mm3 (1.96-9.15); NEUTROPHILS PERCENT AUTO 67 % (41-73); Platelet Count 127 K/mm3 (150-400); RDW Coefficient Variation 13.5 % (11.7-14.2); RDW Standard Deviation 49.4 fL (35.1-46.3); Red Blood Cell Count 3.21 M/mm3 (4.30-5.90); White Blood Cell Count 9.62 K/mm3 (4.00-11.30)
--- NOTE | 2023-06-29 03:00 | NUR ---
PER PHARMARCY RATE ADJUST ON HEPARIN DRIP TO 17U/KG/HR
[2023-06-29 03:08] LABS: Albumin, Blood 3.1 g/dL (3.4-5.0); Albumin/Globulin Ratio 1.1 (0.8-1.8); Bilirubin, Total 0.5 mg/dL (0.1-1.0); Bun/Creatinine Ratio 11.9 (12.0-20.0); Calcium, Blood 8.6 mg/dL (8.5-10.1); Creatinine, Blood 1.43 mg/dL (0.60-1.20); Globulin, Blood 2.8 g/dL (2.2-4.0); Potassium, Blood 3.6 mmol/L (3.5-5.5); Total Protein, Blood 5.9 g/dL (6.4-8.2)
[2023-06-29 03:49] VITALS: BP 120/80
--- NOTE | 2023-06-29 06:31 | NUR ---
MARQUITA IS A&OX4, PLEASANT AND VERY COOPERATIVE . TOLERATED TAKING HEPARIN IV BACK AND FORTH INTO THE BATHROOM. NO FURTHER COMPLAINTS OF CHEST PAIN/SOB OVERNIGHT. AWAITING PE STUDY TO DETERMINE WHETHER THIS IS THE CAUSE OF HIS RECENT DISCOMFORT.
[2023-06-29 07:24] VITALS: BP 123/74
--- NOTE | 2023-06-29 13:31 | NUR ---
HEPARIN INFUSION STOPPED AND PT SALINE LOCKED.
[2023-06-29 16:28] VITALS: BP 104/82
--- NOTE | 2023-06-29 17:38 | NUR ---
SHIFT SUMMARY: PT A/O X 4 IND IN ROOM, PLEASANT AND COOPERATIVE. PT ON RA AT THIS TIME, NO COMPLAINTS OF CP, SOB. PT EATING AND DRINKING WELL. PT HAD NO COMPLAINTS THROUGHOUT THE DAY.
[2023-06-29 20:04] VITALS: BP 102/79
--- NOTE | 2023-06-30 03:52 | NUR ---
NO NEW CONCERNS OVERNIGHT. PATIENT IS A/OX4, UP INDEPENDENTLY IN ROOM. VSS, ON RA. IV TO R FA WNL AND SL BETWEEN ANB, RECEVING UNASYN Q6 HOURS. SKIN INTACT. TOLERATING CARDIAC DIET. NSR ON TELE, DENIES ANY CP OR PRESSURE. DENIES ANY PAIN OR DISCOMFORT THIS SHIFT. CALM AND COOPERATIVE WITH CARE, ABLE TO MAKE NEEDS KNOWN.
[2023-06-30 05:04] VITALS: BP 111/68
[2023-06-30 05:10] LABS: BASOPHILS ABSOLUTE AUTO 0.02 K/mm3 (0.00-0.23); BASOPHILS PERCENT AUTO 0 % (0-2); EOSINOPHILS PERCENT AUTO 7 % (0-6); Hematocrit 31.2 % (37.0-53.0); Hemoglobin 10.8 g/dL (13.5-17.5); IMMATURE GRAN ABSOLUTE AUTO 0.01 K/mm3 (0.00-0.10); IMMATURE GRAN PERCENT AUTO 0 % (0-1); LYMPHOCYTES PERCENT AUTO 26 % (21-46); MONOCYTES PERCENT AUTO 12 % (4-13); Mean Corpuscular HGB 34.1 pg (26.0-34.0); Mean Corpuscular HGB Conc 34.6 g/dL (31.5-36.5); Mean Corpuscular Volume 98 fL (80-100); Mean Platelet Volume 10.5 fL (9.1-12.4); NEUTROPHILS ABSOLUTE AUTO 3.95 K/mm3 (1.96-9.15); NEUTROPHILS PERCENT AUTO 54 % (41-73); Platelet Count 122 K/mm3 (150-400); RDW Coefficient Variation 13.2 % (11.7-14.2); Red Blood Cell Count 3.17 M/mm3 (4.30-5.90); White Blood Cell Count 7.28 K/mm3 (4.00-11.30)
[2023-06-30 06:15] LABS: Anion Gap 5 mmol/L (6-16); Blood Urea Nitrogen 23 mg/dL (8-24); Bun/Creatinine Ratio 15.1 (12.0-20.0); CO2, Blood 26 mmol/L (21-32); Calcium, Blood 8.4 mg/dL (8.5-10.1); Chloride, Blood 108 mmol/L (98-108); Creatinine, Blood 1.52 mg/dL (0.60-1.20); Glomerular Filtration Rate 47 (60-); Glucose, Blood 96 mg/dL (70-99); Potassium, Blood 3.7 mmol/L (3.5-5.5); Sodium, Blood 139 mmol/L (136-145)
[2023-06-30 07:51] VITALS: BP 103/70
[2023-06-30] MEDS ORDERED: VISBIOME 112.51 EACH PO (11:01)
[2023-06-30] MEDS ORDERED: AMOCLA875 PO (11:02)
[2023-06-30] MEDS ORDERED: FURO40 PO (11:04)
--- NOTE | 2023-06-30 13:57 | NUR ---
SHIFT/DISCHARGE SUMMARY: Pt remains A&Ox3 this shift. Denies pain. VSS. Voiding without difficulty. Tolerating diet. All discharge instructions reviewed with return verbal understanding from and pt. Pt to lobby with all belongings via transfer chair
== END 2023-06-30 13:51 | disposition home or self-care (01) | DRG 291 ==
LOC: ER 04:03 → ERHOLD 06:12 → MEDS 06:12 → EDPENDDISTM 06-30 09:41 → EDPENDDISDT 06-30 09:41 → ENPENDDIS 06-30 09:41 → MEDS 06-30 13:51
PROVIDERS: Family Medicine; Internal Medicine; Student in an Organized Health Care Education/Training Program; ADMIT Internal Medicine
DX: I13.0 Hypertensive heart and chronic kidney disease with heart failure and stage 1 through stage 4 chronic kidney disease, or unspecified chronic kidney disease (principal); E43 Unspecified severe protein-calorie malnutrition; I50.33 Acute on chronic diastolic (congestive) heart failure; J96.01 Acute respiratory failure with hypoxia; J69.0 Pneumonitis due to inhalation of food and vomit; Z68.1 Body mass index [BMI] 19.9 or less, adult; R64 Cachexia; I24.8 Other forms of acute ischemic heart disease; Z66 Do not resuscitate; J44.9 Chronic obstructive pulmonary disease, unspecified; E78.5 Hyperlipidemia, unspecified; F32.A Depression, unspecified; F43.10 Post-traumatic stress disorder, unspecified; I25.10 Atherosclerotic heart disease of native coronary artery without angina pectoris; I73.9 Peripheral vascular disease, unspecified; N18.30 Chronic kidney disease, stage 3 unspecified; D69.6 Thrombocytopenia, unspecified; D63.1 Anemia in chronic kidney disease; I34.0 Nonrheumatic mitral (valve) insufficiency; I07.1 Rheumatic tricuspid insufficiency; I77.1 Stricture of artery; I25.9 Chronic ischemic heart disease, unspecified; Z95.1 Presence of aortocoronary bypass graft; Z95.5 Presence of coronary angioplasty implant and graft; I25.2 Old myocardial infarction; Z79.899 Other long term (current) drug therapy; Z79.01 Long term (current) use of anticoagulants; Z98.890 Other specified postprocedural states; Z87.891 Personal history of nicotine dependence; Z99.81 Dependence on supplemental oxygen
CPT/HCPCS: 36415; 71046; 78580; 80048; 80053; 80069; 83735; 83880; 84145; 84484; 85025; 85379; 85610; 85730; 93005; 93010; 93306; 96372-59; 96374-59; 96376-59; 99285-25; A9270; A9540; J0295; J1644; J1650; J1940; J7050

== ENCOUNTER 2023-07-26 10:55 | Inpatient (IN) | payer OTHER ==
[2023-07-26] VITALS (34 sets, daily range): BP systolic 107–162; BP diastolic 56–147
[~2023-07-26] VITALS: Ht 198.1 cm; Wt 62.3 kg
[~2023-07-26 10:55] MED LIST changes: +AMOCLA875 PO; +B-12500 MC2 PO; +TAMS.4ER PO; +VISBIOME 112.51 EACH PO
[2023-07-26 11:38] LABS: BASOPHILS ABSOLUTE AUTO 0.02 K/mm3 (0.00-0.23); BASOPHILS PERCENT AUTO 0 % (0-2); EOSINOPHILS PERCENT AUTO 3 % (0-6); Hematocrit 37.3 % (37.0-53.0); Hemoglobin 12.4 g/dL (13.5-17.5); IMMATURE GRAN ABSOLUTE AUTO 0.04 K/mm3 (0.00-0.10); IMMATURE GRAN PERCENT AUTO 0 % (0-1); LYMPHOCYTES ABSOLUTE AUTO 1.51 K/mm3 (0.84-5.20); LYMPHOCYTES PERCENT AUTO 16 % (21-46); MONOCYTES ABSOLUTE AUTO 0.81 K/mm3 (0.16-1.47); MONOCYTES PERCENT AUTO 8 % (4-13); Mean Corpuscular HGB 33.7 pg (26.0-34.0); Mean Corpuscular HGB Conc 33.2 g/dL (31.5-36.5); Mean Corpuscular Volume 101 fL (80-100); Mean Platelet Volume 10.1 fL (9.1-12.4); NEUTROPHILS ABSOLUTE AUTO 7.05 K/mm3 (1.96-9.15); NEUTROPHILS PERCENT AUTO 73 % (41-73); Platelet Count 143 K/mm3 (150-400); RDW Coefficient Variation 13.2 % (11.7-14.2); Red Blood Cell Count 3.68 M/mm3 (4.30-5.90); White Blood Cell Count 9.73 K/mm3 (4.00-11.30)
[2023-07-26 12:44] LABS: Albumin, Blood 3.9 g/dL (3.4-5.0); Albumin/Globulin Ratio 1.1 (0.8-1.8); Bilirubin, Total 0.6 mg/dL (0.1-1.0); Bun/Creatinine Ratio 11.5 (12.0-20.0); Calcium, Blood 9.2 mg/dL (8.5-10.1); Creatinine, Blood 1.57 mg/dL (0.60-1.20); Globulin, Blood 3.5 g/dL (2.2-4.0); Potassium, Blood 3.8 mmol/L (3.5-5.5); Total Protein, Blood 7.4 g/dL (6.4-8.2)
--- NOTE | 2023-07-26 15:26 | NUR ---
FAMILY UPDATE: Pt's called and notified of admission per pt request.
--- NOTE | 2023-07-26 15:44 | NUR ---
PROVIDER UPDATE: Pt converted into NSR after [address] Wick notified. RN instructed to discontinue heparin and reduce Esmolol. If HR tolerates reduced dose, will give PO metoprolol.
--- NOTE | 2023-07-26 16:44 | NUR ---
Spiritual Care Visit. Pt. is awake in bed and recognizes this industrial analyst as his next door neighbor. Facilitate a lengthy life review and considered matters of john and belief. Pt. displays a pleasant and hopeful demeanor. Pt. had not other primary concerns. Prayed with Pt. Pt. verbalized gratitude for the spiritual care visit and welcomed this industrial analyst to return.
--- NOTE | 2023-07-26 17:56 | NUR ---
SHIFT SUMMARY: Brady was admitted from ED to ICU this afternoon. Initially, his was in Afib 130-160s with esmolol infusing. After second esmolol bolus pt converted into sinus rhythm in 80's. PO metoprlol given and esmolol to be placed on SB. Troponin elevated and heparin drip reordered. Pt very plesant without complaints of chest pain or shortness of breath. He transfers independantly and uses urinal.
[2023-07-26 18:00] LABS: Anti-Xa UFH, PHA Monitoring 0.13 IU/mL
[2023-07-26 18:29] LABS: International Normalized Ratio 1.03; Prothrombin Time Results 10.8 Sec (9.7-11.5)
[2023-07-26] MEDS ORDERED: EZET10 PO (18:36)
--- NOTE | 2023-07-26 20:03 | NUR ---
ASSUMED CARE OF PATIENT AT 1900. REPORT RECEIVED FROM ROMIE ORTZI. VSS AND NO ACUTE NEEDS IDENTIFIED AT THIS TIME. SEE SHIFT ASSESSMENT FOR FULL ASSESSMENT DETAILS.
[2023-07-27] VITALS (15 sets, daily range): BP systolic 113–146; BP diastolic 83–113
[2023-07-27 02:39] LABS: BASOPHILS ABSOLUTE AUTO 0.03 K/mm3 (0.00-0.23); BASOPHILS PERCENT AUTO 0 % (0-2); EOSINOPHILS ABSOLUTE AUTO 0.18 K/mm3 (0.00-0.68); EOSINOPHILS PERCENT AUTO 2 % (0-6); Hematocrit 31.9 % (37.0-53.0); Hemoglobin 10.7 g/dL (13.5-17.5); IMMATURE GRAN ABSOLUTE AUTO 0.02 K/mm3 (0.00-0.10); IMMATURE GRAN PERCENT AUTO 0 % (0-1); LYMPHOCYTES ABSOLUTE AUTO 1.16 K/mm3 (0.84-5.20); LYMPHOCYTES PERCENT AUTO 12 % (21-46); MONOCYTES ABSOLUTE AUTO 0.89 K/mm3 (0.16-1.47); MONOCYTES PERCENT AUTO 9 % (4-13); Mean Corpuscular HGB Conc 33.5 g/dL (31.5-36.5); Mean Corpuscular Volume 101 fL (80-100); Mean Platelet Volume 10.4 fL (9.1-12.4); NEUTROPHILS ABSOLUTE AUTO 7.21 K/mm3 (1.96-9.15); NEUTROPHILS PERCENT AUTO 76 % (41-73); Platelet Count 131 K/mm3 (150-400); RDW Coefficient Variation 13.5 % (11.7-14.2); RDW Standard Deviation 49.9 fL (35.1-46.3); Red Blood Cell Count 3.15 M/mm3 (4.30-5.90); White Blood Cell Count 9.49 K/mm3 (4.00-11.30)
[2023-07-27 03:00] LABS: Albumin, Blood 3.3 g/dL (3.4-5.0); Albumin/Globulin Ratio 1.1 (0.8-1.8); Bilirubin, Total 0.6 mg/dL (0.1-1.0); Calcium, Blood 8.6 mg/dL (8.5-10.1); Creatinine, Blood 1.42 mg/dL (0.60-1.20); Globulin, Blood 3.1 g/dL (2.2-4.0); Magnesium, Blood 2.1 mg/dL (1.6-2.4); Total Protein, Blood 6.4 g/dL (6.4-8.2)
--- NOTE | 2023-07-27 05:49 | NUR ---
SHIFT SUMMARY. PATIENT REMAINED ALERT AND ORIENTED X 4 THROUGHOUT ENTIRETY OF SHIFT. AFEBRILE AND DENIED ANY PAIN. AMBULATES TO BSC. MONITOR SHOWED SR WITH HR IN 60'S-80'S. ESMOLOL ON SB THROUGHOUT SHIFT. PATIENT REQUIRED SUPPLEMENTAL OXYGEN OVERNIGHT AT 4LPM WITH GOOD BENEFIT. HEART HEALTHY DIET IS ORDERED BUT PT ENDORSES DECREASED APPETITE. NO BM THIS SHIFT. VOIDS INDEPENDENTLY IN BSC. PIV TO RA AND LFA. HEPARIN INFUSING AT 15 U/KG/HR. WILL CONTINUE TO MONITOR AND REPORT TO ONCOMING NURSE.
--- NOTE | 2023-07-27 09:02 | NUR ---
Dane of Care: Care assumed at 0700hr. Patient alert and oriented x4. Denies pain or discomfort. C/o mild SOB with standing/walking, quickly recovering with rest. VSS, SpO2 88-92% on 3L/NC. Heart rhythm shows sinus rhythm with occasional PVC's, denies chest pain or pressure. Peripheral IV's x2 patent and intact. Heparin gtt infusing per EMAR, dose verified with NOC shift RN. Voiding using toilet in room without difficulty. Dr. Wick in room at approx 0830. Received orders to transfer to PCU status and maintain heparin gtt throughout today/tonight. Call light in reach, makes needs known. Will continue to monitor.
--- NOTE | 2023-07-27 12:21 | NUR ---
TRANSFER NOTE: PT TRANSFERRED FROM ICU11 TO [facility] AT 1204. BEDSIDE REPORT TAKEN FROM FRANCK GRUBBS. VSS ON TRANSFER; HR 70'S, SBP 140'S. SPO2 96% ON 2L NC. PT ABLE TO STAND AND AMBULATE TO BED FROM WHEELCHAIR. HEPARIN GTT VERIFIED WITH FRANCK GRUBBS AND CORKY RN. PT UP IN BED EATING LUNCH AT THIS TIME. ORIENTED TO UNIT AND ROOM, CALL LIGHT WITHIN REACH. PT EDUCATED ON IMPORTANCE OF CALLING PRIOR TO AMBULATION TO BATHROOM TO PREVENT FALLS. ORIENTED TO FAST FOOD RESTAURANT MANAGER PROTOCOL AND PHONE NUMBER. NO OTHER NEEDS AT THIS TIME. CALL LIGHT WITHIN REACH, BED IN LOWEST POSITION.
--- NOTE | 2023-07-27 15:19 | NUR ---
Pt. is awake and he welcomes my visit. Pt. is pleasant and asks if he may ask this technical healthcare consultant spirutal questions. Listen with interest, empathy and a calm presence. Responded to the Pts. questions with pastoral care and instruction from the scriptures. Rapport is firmly re-established. Pt. displays evidence of engagement and a great sense of humor. Prayed with Pt. Pt. verbalized gratitude for the spiritual care visit.
[2023-07-27 16:13] LABS: Hematocrit 34.7 % (37.0-53.0); Hemoglobin 11.9 g/dL (13.5-17.5)
--- NOTE | 2023-07-27 16:39 | NUR ---
END OF SHIFT NOTE: NO ACUTE EVENTS FOLLOWING TRANSFER TO PCU. A&OX4, EXTREMELY PLEASANT AND COOPERATIVE WITH CARE. ABLE TO CALL APPROPRIATELY AND MAKE NEEDS KNOWN TO STAFF. HR NSR W/ PVC'S, 70-80'S. SBP 130-140'S, DENIES CHEST PAIN/PRESSURE. SPO2 >92% ON 3L VIA N/C, PT DENIES SOB. AFEBRILE. HEPARIN INFUSING PER EMAR, MANAGED BY PHARMACY. PT ABLE TO AMBULATE TO BATHROOM W/ SBA. 1 BM PRIOR TO TRANSFER. PT REPOSITIONS SELF IN BED FREQUENTLY. CALL LIGHT WITHIN REACH, BED IN LOWEST POSITION. WILL REPORT TO ONCOMING NOC RN.
[2023-07-28 00:02] VITALS: BP 114/82
[2023-07-28 03:48] VITALS: BP 126/91
--- NOTE | 2023-07-28 04:36 | NUR ---
SHIFT SUMMARY PT A&Ox4, CALLS AND COMMUNICATES NEEDS APPROPRIATELY. BP STABLE, SINUS 70's, DENIES CP/PRESSURE. SpO2> 92% RA-2L PRN, DENIES SOB. SBA TO BATHROOM, CONTINENT OF URINE AND BOWEL. HEPARIN gtt INFUSING PER EMAR, MANAGED BY PHARMACY. NO OTHER EVENTS, WILL REPORT TO ONCOMING RN.
[2023-07-28 06:34] LABS: BASOPHILS ABSOLUTE AUTO 0.03 K/mm3 (0.00-0.23); BASOPHILS PERCENT AUTO 0 % (0-2); EOSINOPHILS ABSOLUTE AUTO 0.11 K/mm3 (0.00-0.68); EOSINOPHILS PERCENT AUTO 1 % (0-6); Hematocrit 34.8 % (37.0-53.0); Hemoglobin 11.8 g/dL (13.5-17.5); IMMATURE GRAN ABSOLUTE AUTO 0.02 K/mm3 (0.00-0.10); IMMATURE GRAN PERCENT AUTO 0 % (0-1); LYMPHOCYTES ABSOLUTE AUTO 1.06 K/mm3 (0.84-5.20); LYMPHOCYTES PERCENT AUTO 12 % (21-46); MONOCYTES ABSOLUTE AUTO 1.01 K/mm3 (0.16-1.47); MONOCYTES PERCENT AUTO 12 % (4-13); Mean Corpuscular HGB 34.5 pg (26.0-34.0); Mean Corpuscular HGB Conc 33.9 g/dL (31.5-36.5); Mean Corpuscular Volume 102 fL (80-100); Mean Platelet Volume 10.4 fL (9.1-12.4); NEUTROPHILS ABSOLUTE AUTO 6.58 K/mm3 (1.96-9.15); NEUTROPHILS PERCENT AUTO 75 % (41-73); Platelet Count 141 K/mm3 (150-400); RDW Coefficient Variation 13.3 % (11.7-14.2); RDW Standard Deviation 50.2 fL (35.1-46.3); Red Blood Cell Count 3.42 M/mm3 (4.30-5.90); White Blood Cell Count 8.81 K/mm3 (4.00-11.30)
[2023-07-28 06:42] LABS: Albumin, Blood 3.3 g/dL (3.4-5.0); Bilirubin, Total 0.6 mg/dL (0.1-1.0); Bun/Creatinine Ratio 12.5 (12.0-20.0); Calcium, Blood 8.9 mg/dL (8.5-10.1); Creatinine, Blood 1.44 mg/dL (0.60-1.20); Globulin, Blood 3.4 g/dL (2.2-4.0); Magnesium, Blood 1.9 mg/dL (1.6-2.4); Potassium, Blood 3.7 mmol/L (3.5-5.5); Total Protein, Blood 6.7 g/dL (6.4-8.2)
[2023-07-28 07:32] VITALS: BP 111/79
[2023-07-28 11:16] VITALS: BP 103/82
[2023-07-28] MEDS ORDERED: STIOLTO RESPIMAT4 G1 INH (13:28)
[2023-07-28] MEDS ORDERED: IPRAT-ALBUT 0.5-3 ML INH (13:29)
[2023-07-28] MEDS ORDERED: LOSA25 PO (13:29)
[2023-07-28] MEDS ORDERED: ASPI81CH PO (13:30)
--- NOTE | 2023-07-28 14:27 | NUR ---
PT DISCHARGE TO HOME WITH DISCHARGE ORDERS, AT THE BEDSIDE ALL T/O SHIFT. HOME O2 EVAL WAS DONE PT REQUIRING 5L OF O2 WITH EXERTION, SOB NOTED. VITALS HAS BEEN STABLE, PT HAS BEEN GETTING IN THE BATHROOM INDEPENDENTLY, PT WAS ABLE TO WORK WITH PHYSICAL THERAPIST RECOMMENDING OUTPT THERAPY. PT HAS APPT MADE FOR COMMERCIAL FISHERMAN IN 2 WEEKS, TO FFUP WITH PCP WELL. XARELTO DOSE WAS GVEN AFTER HEPARIN GTT WAS STOPPED PER PHARMACY. PRESCRIPTION SENT TO [facility]. ALL NEW MEDICATIONS AND INSTRUCTIONS DISCLOSED WITH BOTH PT AND THE , BOTH VERBALIZED UNDERSTANDING. ALL BELONGINGS SENT WITH THE PT, O2 DELIVERED BY [place].
== END 2023-07-28 14:00 | disposition home or self-care (01) | DRG 280 ==
LOC: ER 10:55 → ICUE 10:56 → PCU 07-27 12:04
PROVIDERS: Physician Assistant; ADMIT Student in an Organized Health Care Education/Training Program
DX: I48.91 Unspecified atrial fibrillation (principal); I21.4 Non-ST elevation (NSTEMI) myocardial infarction; I50.43 Acute on chronic combined systolic (congestive) and diastolic (congestive) heart failure; I13.0 Hypertensive heart and chronic kidney disease with heart failure and stage 1 through stage 4 chronic kidney disease, or unspecified chronic kidney disease; I25.10 Atherosclerotic heart disease of native coronary artery without angina pectoris; N18.30 Chronic kidney disease, stage 3 unspecified; I34.0 Nonrheumatic mitral (valve) insufficiency; E78.5 Hyperlipidemia, unspecified; F32.A Depression, unspecified; I73.9 Peripheral vascular disease, unspecified; D63.1 Anemia in chronic kidney disease; J44.9 Chronic obstructive pulmonary disease, unspecified; Z87.891 Personal history of nicotine dependence; Z79.02 Long term (current) use of antithrombotics/antiplatelets; Z79.899 Other long term (current) drug therapy; Z87.19 Personal history of other diseases of the digestive system; Z79.2 Long term (current) use of antibiotics; Z95.5 Presence of coronary angioplasty implant and graft; Z95.1 Presence of aortocoronary bypass graft; Z98.890 Other specified postprocedural states; Z95.820 Peripheral vascular angioplasty status with implants and grafts
CPT/HCPCS: 36415; 71045; 80053; 82607; 82746; 83735; 83880; 84484; 85014; 85018; 85025; 85520; 85610; 85730; 93005; 93010; 94640; 94664; 94761; 94762; 96361; 96365; 96366; 96367; 96374; 96375; 96376; 97110; 97161; 99284-25; A9270; G0378; J1644; J3475

== ENCOUNTER 2023-09-16 10:42 | Inpatient (IN) | payer OTHER ==
[2023-09-16] VITALS (14 sets, daily range): BP systolic 120–156; BP diastolic 73–103
[~2023-09-16] VITALS: Ht 198.1 cm; Wt 64.8 kg
[~2023-09-16 10:42] MED LIST changes: +ASPI81CH PO; +IPRAT-ALBUT 0.5-3 ML INH; +LOSA25 PO; +METO50ER PO; -METOPROLOL SUCC25 MG PO; +STIOLTO RESPIMAT4 G1 INH
[2023-09-16 11:05] LABS: BASOPHILS ABSOLUTE AUTO 0.05 K/mm3 (0.00-0.23); BASOPHILS PERCENT AUTO 1 % (0-2); EOSINOPHILS ABSOLUTE AUTO 0.21 K/mm3 (0.00-0.68); EOSINOPHILS PERCENT AUTO 2 % (0-6); Hematocrit 34.3 % (37.0-53.0); Hemoglobin 11.2 g/dL (13.5-17.5); IMMATURE GRAN ABSOLUTE AUTO 0.04 K/mm3 (0.00-0.10); IMMATURE GRAN PERCENT AUTO 0 % (0-1); LYMPHOCYTES ABSOLUTE AUTO 1.59 K/mm3 (0.84-5.20); LYMPHOCYTES PERCENT AUTO 15 % (21-46); MONOCYTES ABSOLUTE AUTO 0.72 K/mm3 (0.16-1.47); MONOCYTES PERCENT AUTO 7 % (4-13); Mean Corpuscular HGB 33.2 pg (26.0-34.0); Mean Corpuscular HGB Conc 32.7 g/dL (31.5-36.5); Mean Corpuscular Volume 102 fL (80-100); Mean Platelet Volume 10.4 fL (9.1-12.4); NEUTROPHILS ABSOLUTE AUTO 8.17 K/mm3 (1.96-9.15); NEUTROPHILS PERCENT AUTO 76 % (41-73); Platelet Count 141 K/mm3 (150-400); RDW Coefficient Variation 13.1 % (11.7-14.2); RDW Standard Deviation 48.9 fL (35.1-46.3); Red Blood Cell Count 3.37 M/mm3 (4.30-5.90); White Blood Cell Count 10.78 K/mm3 (4.00-11.30)
[2023-09-16 11:30] LABS: Albumin, Blood 3.6 g/dL (3.4-5.0); Albumin/Globulin Ratio 1.1 (0.8-1.8); Bilirubin, Total 0.3 mg/dL (0.1-1.0); Bun/Creatinine Ratio 20.7 (12.0-20.0); Calcium, Blood 9.1 mg/dL (8.5-10.1); Creatinine, Blood 1.88 mg/dL (0.60-1.20); Globulin, Blood 3.3 g/dL (2.2-4.0); Potassium, Blood 4.1 mmol/L (3.5-5.5); Total Protein, Blood 6.9 g/dL (6.4-8.2)
--- NOTE | 2023-09-16 21:18 | NUR ---
SPOKE WITH ISABEL HAIR FOR PT TO START PO METOPROLOL THIS EVENING AND PT TO BE ON CARDIAC DIET. PT DENIES ANY CHEST PAIN/PRESSURE. HR SR IN 60'S. O2 SATS > 90% ON RA. BP STABLE, SEE RECORDED VITAL SIGNS. A&OX4. ORIENTED TO ROOM AND CALL LIGHT. CRISTOBAL NEEDS AT THIS TIME.
--- NOTE | 2023-09-16 22:37 | NUR ---
PT REPORTS FEELING SOB. DENIES CHEST PAIN/PRESSURE. NO CHANGES TO RHYTHM NOTED ON TELEMETRY. PLACE ON 2 LPM VIA NC FOR COMFORT. MCKENZIE IN CLINICAL COURIER CALLED AND REQUESTED NEBULIZER TREATMENT. WILL MONITOR RESULTS. CALL LIGHT IN REACH.
--- NOTE | 2023-09-16 22:55 | NUR ---
REPORTS IMPROVED SOB. WILL MONITOR. 2 LPM VIA NC LEFT ON FOR PT COMFORT. CALL LIGHT IN REACH.
[2023-09-17] VITALS (7 sets, daily range): BP systolic 97–139; BP diastolic 67–97
[2023-09-17 04:30] LABS: BASOPHILS ABSOLUTE AUTO 0.03 K/mm3 (0.00-0.23); BASOPHILS PERCENT AUTO 0 % (0-2); EOSINOPHILS ABSOLUTE AUTO 0.13 K/mm3 (0.00-0.68); EOSINOPHILS PERCENT AUTO 1 % (0-6); Hematocrit 29.5 % (37.0-53.0); Hemoglobin 9.8 g/dL (13.5-17.5); IMMATURE GRAN ABSOLUTE AUTO 0.02 K/mm3 (0.00-0.10); IMMATURE GRAN PERCENT AUTO 0 % (0-1); LYMPHOCYTES ABSOLUTE AUTO 1.07 K/mm3 (0.84-5.20); LYMPHOCYTES PERCENT AUTO 11 % (21-46); MONOCYTES ABSOLUTE AUTO 0.97 K/mm3 (0.16-1.47); MONOCYTES PERCENT AUTO 10 % (4-13); Mean Corpuscular HGB 33.3 pg (26.0-34.0); Mean Corpuscular HGB Conc 33.2 g/dL (31.5-36.5); Mean Corpuscular Volume 100 fL (80-100); Mean Platelet Volume 10.8 fL (9.1-12.4); NEUTROPHILS ABSOLUTE AUTO 7.55 K/mm3 (1.96-9.15); NEUTROPHILS PERCENT AUTO 77 % (41-73); Platelet Count 136 K/mm3 (150-400); RDW Coefficient Variation 13.2 % (11.7-14.2); RDW Standard Deviation 48.9 fL (35.1-46.3); Red Blood Cell Count 2.94 M/mm3 (4.30-5.90); White Blood Cell Count 9.77 K/mm3 (4.00-11.30)
[2023-09-17 04:57] LABS: Bun/Creatinine Ratio 18.4 (12.0-20.0); Calcium, Blood 8.8 mg/dL (8.5-10.1); Creatinine, Blood 2.88 mg/dL (0.60-1.20); Magnesium, Blood 2.2 mg/dL (1.6-2.4); Potassium, Blood 4.3 mmol/L (3.5-5.5)
--- NOTE | 2023-09-17 06:11 | NUR ---
SHIFT SUMMARY: NO FURTHER COMPLAINTS OF SOB. HR REMAINED IN SR THROUGHOUT SHIFT. NO COMPLAINTS OF CHEST PAIN/PRESSURE. CALL LIGHT IN REACH. BED ALARM ON.
[2023-09-17] MEDS ORDERED: ENTRESTO 24 MG1 EACH PO (14:57)
[2023-09-17] MEDS ORDERED: JARDIANCE10 MG PO (14:57)
--- NOTE | 2023-09-17 15:20 | NUR ---
UPDATE TROPONIN RESULT CALLED TO DR. RAMACHANDRAN. DEMETRIUS FOR DISCHARGE RECEIVED. PT PROVIDED DC INSTRUCTIONS AND EDUCATED ON MEDICATION CHANGES. ALL QUESTIONS ANSWERED. PT AWAITING RIDE AND WILL BE TAKEN OUT BY WC
== END 2023-09-17 16:00 | disposition home or self-care (01) | DRG 280 ==
LOC: ER 10:42 → PCU 10:43
PROVIDERS: Emergency Medicine; ADMIT Internal Medicine
DX: I13.0 Hypertensive heart and chronic kidney disease with heart failure and stage 1 through stage 4 chronic kidney disease, or unspecified chronic kidney disease (principal); I50.43 Acute on chronic combined systolic (congestive) and diastolic (congestive) heart failure; I21.A1 Myocardial infarction type 2; N17.9 Acute kidney failure, unspecified; I48.0 Paroxysmal atrial fibrillation; I25.10 Atherosclerotic heart disease of native coronary artery without angina pectoris; J44.9 Chronic obstructive pulmonary disease, unspecified; N18.30 Chronic kidney disease, stage 3 unspecified; E78.5 Hyperlipidemia, unspecified; F32.A Depression, unspecified; I34.0 Nonrheumatic mitral (valve) insufficiency; I73.9 Peripheral vascular disease, unspecified; T14.8XXA Other injury of unspecified body region, initial encounter; X58.XXXA Exposure to other specified factors, initial encounter; Z95.820 Peripheral vascular angioplasty status with implants and grafts; Z95.5 Presence of coronary angioplasty implant and graft; Z95.1 Presence of aortocoronary bypass graft; I25.2 Old myocardial infarction; Z79.82 Long term (current) use of aspirin; Z79.02 Long term (current) use of antithrombotics/antiplatelets; Z79.01 Long term (current) use of anticoagulants
CPT/HCPCS: 36415; 71045; 80048; 80053; 83735; 83880; 84484; 85025; 93005; 93010; 94640; 94664; 94760; 96365; 96375; 99285-25; A9270; J1940

== ENCOUNTER 2023-09-22 11:47 | Emergency (ER) | payer OTHER ==
[~2023-09-22] VITALS: Ht 198.1 cm; Wt 65.8 kg
[~2023-09-22 11:47] MED LIST changes: +ENTRESTO 24 MG1 EACH PO; +JARDIANCE10 MG PO
[2023-09-22 12:35] LABS: BASOPHILS ABSOLUTE AUTO 0.03 K/mm3 (0.00-0.23); BASOPHILS PERCENT AUTO 0 % (0-2); EOSINOPHILS ABSOLUTE AUTO 0.16 K/mm3 (0.00-0.68); EOSINOPHILS PERCENT AUTO 2 % (0-6); Hematocrit 30.4 % (37.0-53.0); Hemoglobin 10.1 g/dL (13.5-17.5); IMMATURE GRAN ABSOLUTE AUTO 0.02 K/mm3 (0.00-0.10); IMMATURE GRAN PERCENT AUTO 0 % (0-1); LYMPHOCYTES PERCENT AUTO 11 % (21-46); MONOCYTES ABSOLUTE AUTO 0.76 K/mm3 (0.16-1.47); MONOCYTES PERCENT AUTO 9 % (4-13); Mean Corpuscular HGB 33.4 pg (26.0-34.0); Mean Corpuscular HGB Conc 33.2 g/dL (31.5-36.5); Mean Corpuscular Volume 101 fL (80-100); Mean Platelet Volume 10.4 fL (9.1-12.4); NEUTROPHILS ABSOLUTE AUTO 6.67 K/mm3 (1.96-9.15); NEUTROPHILS PERCENT AUTO 78 % (41-73); Platelet Count 174 K/mm3 (150-400); RDW Coefficient Variation 13.4 % (11.7-14.2); RDW Standard Deviation 49.1 fL (35.1-46.3); Red Blood Cell Count 3.02 M/mm3 (4.30-5.90); White Blood Cell Count 8.54 K/mm3 (4.00-11.30)
[2023-09-22 12:47] LABS: Albumin, Blood 3.6 g/dL (3.4-5.0); Albumin/Globulin Ratio 1.1 (0.8-1.8); Bilirubin, Total 0.5 mg/dL (0.1-1.0); Bun/Creatinine Ratio 24.4 (12.0-20.0); Calcium, Blood 8.8 mg/dL (8.5-10.1); Creatinine, Blood 1.76 mg/dL (0.60-1.20); Globulin, Blood 3.3 g/dL (2.2-4.0); Potassium, Blood 4.3 mmol/L (3.5-5.5); Total Protein, Blood 6.9 g/dL (6.4-8.2)
[2023-09-22 14:15] VITALS: BP 119/87
== END 2023-09-22 14:33 | disposition home or self-care (01) ==
LOC: ER 11:47
PROVIDERS: Physician Assistant
DX: I48.0 Paroxysmal atrial fibrillation (principal); I13.10 Hypertensive heart and chronic kidney disease without heart failure, with stage 1 through stage 4 chronic kidney disease, or unspecified chronic kidney disease; E11.22 Type 2 diabetes mellitus with diabetic chronic kidney disease; I50.40 Unspecified combined systolic (congestive) and diastolic (congestive) heart failure; N18.30 Chronic kidney disease, stage 3 unspecified; E11.51 Type 2 diabetes mellitus with diabetic peripheral angiopathy without gangrene; E78.5 Hyperlipidemia, unspecified; J44.9 Chronic obstructive pulmonary disease, unspecified; Z79.02 Long term (current) use of antithrombotics/antiplatelets; Z79.01 Long term (current) use of anticoagulants; Z79.899 Other long term (current) drug therapy; Z79.84 Long term (current) use of oral hypoglycemic drugs; Z87.891 Personal history of nicotine dependence
CPT/HCPCS: 71046; 80053; 83880; 84484; 85025; 93005; 93010; 99285-25

== ENCOUNTER 2023-10-01 09:43 | Inpatient (IN) | payer OTHER ==
[~2023-10-01] VITALS: Ht 198.1 cm; Wt 66.0 kg
[2023-10-01 10:07] LABS: BASOPHILS ABSOLUTE AUTO 0.02 K/mm3 (0.00-0.23); BASOPHILS PERCENT AUTO 0 % (0-2); EOSINOPHILS ABSOLUTE AUTO 0.22 K/mm3 (0.00-0.68); EOSINOPHILS PERCENT AUTO 3 % (0-6); Hematocrit 23.6 % (37.0-53.0); Hemoglobin 7.8 g/dL (13.5-17.5); IMMATURE GRAN ABSOLUTE AUTO 0.05 K/mm3 (0.00-0.10); IMMATURE GRAN PERCENT AUTO 1 % (0-1); LYMPHOCYTES ABSOLUTE AUTO 0.65 K/mm3 (0.84-5.20); LYMPHOCYTES PERCENT AUTO 8 % (21-46); MONOCYTES ABSOLUTE AUTO 0.32 K/mm3 (0.16-1.47); MONOCYTES PERCENT AUTO 4 % (4-13); Mean Corpuscular HGB 33.6 pg (26.0-34.0); Mean Corpuscular HGB Conc 33.1 g/dL (31.5-36.5); Mean Corpuscular Volume 102 fL (80-100); Mean Platelet Volume 10.5 fL (9.1-12.4); NEUTROPHILS ABSOLUTE AUTO 6.45 K/mm3 (1.96-9.15); NEUTROPHILS PERCENT AUTO 84 % (41-73); Platelet Count 140 K/mm3 (150-400); RDW Coefficient Variation 13.6 % (11.7-14.2); RDW Standard Deviation 49.8 fL (35.1-46.3); Red Blood Cell Count 2.32 M/mm3 (4.30-5.90); White Blood Cell Count 7.71 K/mm3 (4.00-11.30)
[2023-10-01 10:35] LABS: Albumin, Blood 3.2 g/dL (3.4-5.0); Albumin/Globulin Ratio 1.1 (0.8-1.8); Bilirubin, Total 0.2 mg/dL (0.1-1.0); Bun/Creatinine Ratio 23.7 (12.0-20.0); Calcium, Blood 8.3 mg/dL (8.5-10.1); Creatinine, Blood 2.66 mg/dL (0.60-1.20); Globulin, Blood 2.9 g/dL (2.2-4.0); Potassium, Blood 3.9 mmol/L (3.5-5.5); Total Protein, Blood 6.1 g/dL (6.4-8.2)
[2023-10-01 15:56] VITALS: BP 106/69
[2023-10-01] MEDS ORDERED: ASPI81CH PO (16:00)
[2023-10-01] MEDS ORDERED: EZET10 PO (16:01)
[2023-10-01] MEDS ORDERED: POTCHL20ER PO (16:02)
[2023-10-01] MEDS ORDERED: TORSE20 PO (16:08)
[2023-10-01] MEDS ORDERED: ALBU90OI INH (16:09)
[2023-10-01] MEDS ORDERED: TRAZ100 PO (16:09)
--- NOTE | 2023-10-01 18:34 | NUR ---
SHIFT SUMMARY: ASSUMED CARE OF PATIENT UPON HIS TRANSFER FROM ED AT 1552 TODAY. A&O X 2-3, PLEASANT AND COOPERATIVE. HOME MED REC COMPLETED WITH , SOME CHANGES MADE. DENIED PAIN. PLACED ON TELEMTRY, SB-SR 56-62. NO C/O CP OR PRESSURE. PT STATES HE IS NOT COUGHING, SO NO SPUTUM SPECIMEN AT THIS TIME. GOOD APPETITE. INDEPENDENT IN ROOM.
[2023-10-01 20:31] VITALS: BP 144/86
[2023-10-02] VITALS (14 sets, daily range): BP systolic 90–191; BP diastolic 55–105
[2023-10-02 05:16] LABS: BASOPHILS ABSOLUTE AUTO 0.03 K/mm3 (0.00-0.23); BASOPHILS PERCENT AUTO 1 % (0-2); EOSINOPHILS ABSOLUTE AUTO 0.32 K/mm3 (0.00-0.68); EOSINOPHILS PERCENT AUTO 5 % (0-6); Hematocrit 20.6 % (37.0-53.0); Hemoglobin 6.9 g/dL (13.5-17.5); IMMATURE GRAN ABSOLUTE AUTO 0.02 K/mm3 (0.00-0.10); IMMATURE GRAN PERCENT AUTO 0 % (0-1); LYMPHOCYTES ABSOLUTE AUTO 1.18 K/mm3 (0.84-5.20); LYMPHOCYTES PERCENT AUTO 20 % (21-46); MONOCYTES ABSOLUTE AUTO 0.56 K/mm3 (0.16-1.47); MONOCYTES PERCENT AUTO 9 % (4-13); Mean Corpuscular HGB 34.2 pg (26.0-34.0); Mean Corpuscular HGB Conc 33.5 g/dL (31.5-36.5); Mean Corpuscular Volume 102 fL (80-100); Mean Platelet Volume 10.2 fL (9.1-12.4); NEUTROPHILS ABSOLUTE AUTO 3.93 K/mm3 (1.96-9.15); NEUTROPHILS PERCENT AUTO 65 % (41-73); Platelet Count 131 K/mm3 (150-400); RDW Coefficient Variation 13.6 % (11.7-14.2); RDW Standard Deviation 50.9 fL (35.1-46.3); Red Blood Cell Count 2.02 M/mm3 (4.30-5.90); White Blood Cell Count 6.04 K/mm3 (4.00-11.30)
--- NOTE | 2023-10-02 05:50 | NUR ---
SHIFT SUMMARY PT SITTING UP IN BED DURING BEDSIDE ROUNDS, PT TOOK HS MEDS WITHOUT PROBLEMS, PT DENIED CP T/O NIGHT- PT REQUESTED TRAZADONE TO HELP SLEEP, CALL TO [employer] AND NEW ORDER FOR HOME DOSE OF TRAZADONE GIVEN TO PT- PT SLEPT T/O NIGHT, PT INDEPENDENT IN ROOM 140 PT CALLED AND REPORTED THAT HE FELT LIKE HE WAS SOB- PT REPORTED HE HASN'T FELL ASLEEP TONIGHT- VSS, NO S/S OF RESPIRATORY DISTRESS -0420 PT C/O CP 07/01- BP 190/105 HR 92 GAVE NITRO - REPEATED DOSE FOR CP CONTINUING AT 07/01- APPLIED 3L O2 TO BRING O2 WNL- AFTER 2 DOSES NITRO PT DENIED PAIN- PT 97% ON 2L- CALL TO DR. FONTANA ORDER FOR EKG AND TROPONIN- PT CONTINUES TO DENY CHEST PAIN- BED LOW POSITION, CALL LIGHT WITHIN REACH
[2023-10-02 05:51] LABS: Albumin, Blood 2.8 g/dL (3.4-5.0); Bilirubin, Total 0.3 mg/dL (0.1-1.0); Calcium, Blood 8.2 mg/dL (8.5-10.1); Creatinine, Blood 2.23 mg/dL (0.60-1.20); Globulin, Blood 2.7 g/dL (2.2-4.0); Potassium, Blood 4.1 mmol/L (3.5-5.5); Total Protein, Blood 5.5 g/dL (6.4-8.2)
--- NOTE | 2023-10-02 14:53 | NUR ---
Spiritual care visit conducted. Patient is sitting up in bed and alert. He talks at length about his health history, his tour in [place], his spiritual journey and his family. Patient is tearful at times, although he asures me that he is not like that normally. He shares about the of his son when his son was 30 y/o and he talks about the significant change that happened when he decided to follow [employer]. He explains about how his john helped him through the of his son and through the medical difficulties he has faced. He also shares about the love he has for his spouse and the support she is to him at every season of life. I normalized his feelings and fears, listen empathically, hear confession and provide therapeutic listening and prayer. Patient responded well and showed signs of increased peace and a deeper grounding in his john. Patient expressed much appreciation and blessed me as I left. Spiritual care will remain available.
--- NOTE | 2023-10-02 18:46 | NUR ---
SHIFT SUMMARY: ONE UNIT PRBC'S TRANSFUSED THIS MORNING, TOLERATED WELL BY PATIENT, BUT HE DOESN'T REPORT ALL EPISODES OF SOB OR CHEST DISCOMFORT. HAD ONE C/O OF CHEST DISCOMFORT THIS MORNING, RELIEVED BY ELEVATING HOB. USED O2 INTERMITTENTLY. INDEPENDENT IN ROOM. LBM YESTERDAY; NO E/O BLEEDING UPON ASSESSMENT. IF PATIENT IS DISCHARGED ON HOME O2, IS ASKING HAT IT BE ARRANGED THROUGH THE [facility] AND NOT [facility] ([facility] CHARGES THEM MONTHLY, BUT IT'S COMPLETELY COVERED BY THE [facility]).
[2023-10-02 22:57] LABS: Hemoglobin 8.5 g/dL (13.5-17.5)
[2023-10-03 05:00] VITALS: BP 101/71
[2023-10-03 05:10] LABS: BASOPHILS ABSOLUTE AUTO 0.02 K/mm3 (0.00-0.23); BASOPHILS PERCENT AUTO 0 % (0-2); EOSINOPHILS ABSOLUTE AUTO 0.01 K/mm3 (0.00-0.68); EOSINOPHILS PERCENT AUTO 0 % (0-6); Hematocrit 24.6 % (37.0-53.0); Hemoglobin 8.3 g/dL (13.5-17.5); IMMATURE GRAN ABSOLUTE AUTO 0.06 K/mm3 (0.00-0.10); IMMATURE GRAN PERCENT AUTO 1 % (0-1); LYMPHOCYTES ABSOLUTE AUTO 0.25 K/mm3 (0.84-5.20); LYMPHOCYTES PERCENT AUTO 2 % (21-46); MONOCYTES ABSOLUTE AUTO 0.15 K/mm3 (0.16-1.47); MONOCYTES PERCENT AUTO 1 % (4-13); Mean Corpuscular HGB 32.7 pg (26.0-34.0); Mean Corpuscular HGB Conc 33.7 g/dL (31.5-36.5); Mean Platelet Volume 10.2 fL (9.1-12.4); NEUTROPHILS ABSOLUTE AUTO 10.79 K/mm3 (1.96-9.15); NEUTROPHILS PERCENT AUTO 96 % (41-73); Platelet Count 132 K/mm3 (150-400); RDW Coefficient Variation 18.9 % (11.7-14.2); RDW Standard Deviation 67.2 fL (35.1-46.3); Red Blood Cell Count 2.54 M/mm3 (4.30-5.90); White Blood Cell Count 11.28 K/mm3 (4.00-11.30)
[2023-10-03 05:23] LABS: Mean Corpuscular Volume 97 fL (80-100)
[2023-10-03 05:30] LABS: Bun/Creatinine Ratio 19.2 (12.0-20.0); Calcium, Blood 8.2 mg/dL (8.5-10.1); Creatinine, Blood 2.08 mg/dL (0.60-1.20); Magnesium, Blood 2.6 mg/dL (1.6-2.4); Potassium, Blood 4.6 mmol/L (3.5-5.5)
--- NOTE | 2023-10-03 06:25 | NUR ---
SHIFT SUMMARY NOC PT A/O X 4. PLEASANT AND COOPERATIVE WITH CARE. PT HAD C/O OF SOB, VSS WHEN CHECKED, SPO2 >92% ON 3L/NC. STAT H&H TAKEN HGB 8.5, AN CHEST X RAY PERFORMED WITH RESULTS STILL PENDING. PT BLOOD PRESSURE HAS IMPROVED. SPOT CHECKING OF SOB CONTINUES TO SHOW SPO2 > 92%. ONE TIME IVF NS 500ML COMPLETED. AWAITING AM LABS FOR KIDNEY FUNCTION IMPROVEMENT. PT ON TELE RUNNING NSR @ 80 BPM. WILL CONTINUE TO MONITOR PT SOB, HOSPITALIST AWARE. PT IS CURRENTLY RESTING WITH BED IN LOWEST POSITION, AND CALL LIGHT WITHIN REACH.
[2023-10-03 07:48] VITALS: BP 103/66
--- NOTE | 2023-10-03 12:01 | NUR ---
Spiritual care visit conducted. Patient shares about his improved health and the possibility of a D/c tomorrow. We then explore, at length, the meaning and purpose of human existance, his thoughts about eternity and the responsibility to manage well what we have been given. We talk about the wonder and beauty of connection with God and how we can know Him. The discussion was rich and patient appeared to be greatly encouraged by it. I provide prayer and therapeutic listening and will continue to remain available to patient and family..
[2023-10-03 15:36] VITALS: BP 99/70
--- NOTE | 2023-10-03 17:03 | NUR ---
TRANSFER TO 309 REPORT RECEIVD FROM VASHTI GRUBBS. PT ARRIVED TO 309 VIA BED ACCOMPANIED BY . CONTINUE POC.
--- NOTE | 2023-10-03 17:16 | NUR ---
SHIFT SUMMARY PT A&OX2-3 AND PLEASANT. FORGETFUL AT TIMES. USES CALL LIGHT APPROPRIATELY. PT TITRATED DOWN TO 6L OXYGEN AND SATING AT ABOUT 95% VIA PULSE OX. PT DENIES FEELING SOB BUT PT DOES DESAT WITH ACTIVITY. PT USES URINAL INDEPENDENTLY. SBA TO BATHROOM. NO ACUTE CHANGES. NO C/O PAIN. ATTEMPTED TO GET PT TO CHANGE INTO HOSPITAL PANTS AND GOWN BUT PT REFUSED. BED ALARM ON. BED IN LOWEST POSITION AND CALL LIGHT IN REACH.
--- NOTE | 2023-10-03 17:29 | NUR ---
SHIFT SUMMARY PT A&OX4 AND PLEASANT. PT VERBALIZED FEELING BETTER TODAY THAN HE HAS IN WEEKS. PT HAS BEEN ON RA FOR MOST OF DAY. DENIES FEELING SOB. SATING AT 94-95%. NO C/O PAIN OR CP. PT CALLS APPROPRIATELY. PT TRANSFERED TO ROOM 309. REPORT GIVEN TO RECEIVING NURSE.
[2023-10-03 19:06] VITALS: BP 111/88
[2023-10-04 02:25] VITALS: BP 106/83
--- NOTE | 2023-10-04 04:00 | NUR ---
SHIFT SUMMARY ADMITTED FOR CP, KEVIN ON CKD. FULL CODE. HOPEFUL FOR DC TODAY. POSSIBLE OUTPT APPOINTMENT AT [facility] FOR ABLATION. TELEMETRY: NSR @ 70 BPM. CARDIAC DIET. A&O X4. HE DID GET ANXIOUS INTERMITTENTLY THROUGHOUT SHIFT. LR INFUSING @ 50 ML/HR. HX OF COPD. HE DOES GET SOB AT TIMES. STANDBY ASSIST - BRP.
[2023-10-04 07:40] VITALS: BP 102/74
[2023-10-04 15:24] VITALS: BP 128/94
--- NOTE | 2023-10-04 16:16 | NUR ---
NOTE PT ALERT. UP IN ROOM SBA. OXYGEN 2-3 LPER ACTIVITY. VSS. TELEMETRY STABLE. PT COMPLAINED OF CHEST WALL PAIN. PAIN INCREASED WITH A DEEP BREATH AND LEFT CHEST WALL PALPATION. CALLED DR BOONE. TYLENOL AND KPAD NOPT VERY HELPFUL FOR PT COMFORT. ORDERS RECEIVED. HERE EARLIER. EATING FAIR. CONTINUE POC.
[2023-10-04 19:24] VITALS: BP 158/137
[2023-10-05 02:42] VITALS: BP 178/93
--- NOTE | 2023-10-05 04:09 | NUR ---
SHIFT SUMMARY ADMITTED FOR CHEST PAIN. FULL CODE. HX OF COPD, CHF. HE IS ON 3 LPM O2 HERE, RA AT HOME. SLEEP STUDY THIS SHIFT. HE IS ANXIOUS PERIODICALLY THROUGHOUT SHIFT. HX OF DEMENTIA. CARDIAC DIET. LASIX IS SCHEDULED. NO NEW CONCERNS THIS SHIFT
[2023-10-05 05:58] LABS: Bun/Creatinine Ratio 22.2 (12.0-20.0); Creatinine, Blood 1.89 mg/dL (0.60-1.20); Potassium, Blood 4.3 mmol/L (3.5-5.5)
[2023-10-05 07:34] VITALS: BP 179/94
[2023-10-05] MEDS ORDERED: BUSP5 PO (11:28)
[2023-10-05] MEDS ORDERED: PANT20 PO (11:28)
[2023-10-05] MEDS ORDERED: PRED20 PO (11:29)
--- NOTE | 2023-10-05 13:59 | NUR ---
DC HOME WITH O2 WRITTEN & VERBAL DC INSTRUCTIONS GIVEN TO PT WITH PRESENT, BOTH VERBALIZED GOOD UNDERSTANDING. PIV DC'D WITH CATH TIP INTACT, NO REDNESS OR SWELLING NOTED. HOME O2 DELIVERED TO PT'S ROOM PRIOR TO DC. [facility] PT TO [facility] VIA W/C WITH ALL PERSONAL BELONGINGS.
== END 2023-10-05 13:59 | disposition home or self-care (01) | DRG 682 ==
LOC: ER 09:43 → MEDS 09:44
PROVIDERS: Emergency Medicine; Internal Medicine; ADMIT Internal Medicine
PROC: 5A0935A Assistance with Respiratory Ventilation, Less than 24 Consecutive Hours, High Flow/Velocity Cannula (ICD-10-PCS; principal; 2023-10-02)
PROC: 30233N1 Transfusion of Nonautologous Red Blood Cells into Peripheral Vein, Percutaneous Approach (ICD-10-PCS; 2023-10-03)
DX: N17.9 Acute kidney failure, unspecified (principal); E43 Unspecified severe protein-calorie malnutrition; I21.4 Non-ST elevation (NSTEMI) myocardial infarction; J96.21 Acute and chronic respiratory failure with hypoxia; I42.9 Cardiomyopathy, unspecified; I13.0 Hypertensive heart and chronic kidney disease with heart failure and stage 1 through stage 4 chronic kidney disease, or unspecified chronic kidney disease; I50.42 Chronic combined systolic (congestive) and diastolic (congestive) heart failure; R64 Cachexia; J84.9 Interstitial pulmonary disease, unspecified; N13.8 Other obstructive and reflux uropathy; Z68.1 Body mass index [BMI] 19.9 or less, adult; J44.9 Chronic obstructive pulmonary disease, unspecified; D63.1 Anemia in chronic kidney disease; Z66 Do not resuscitate; I73.9 Peripheral vascular disease, unspecified; E78.5 Hyperlipidemia, unspecified; F43.10 Post-traumatic stress disorder, unspecified; I25.118 Atherosclerotic heart disease of native coronary artery with other forms of angina pectoris; D69.6 Thrombocytopenia, unspecified; K21.9 Gastro-esophageal reflux disease without esophagitis; G47.00 Insomnia, unspecified; J43.9 Emphysema, unspecified; N40.1 Benign prostatic hyperplasia with lower urinary tract symptoms; R33.8 Other retention of urine; I27.20 Pulmonary hypertension, unspecified; F32.A Depression, unspecified; G62.9 Polyneuropathy, unspecified; N18.32 Chronic kidney disease, stage 3b; Z95.1 Presence of aortocoronary bypass graft; Z79.2 Long term (current) use of antibiotics; Z79.899 Other long term (current) drug therapy; Z79.52 Long term (current) use of systemic steroids; Z87.891 Personal history of nicotine dependence; Z79.01 Long term (current) use of anticoagulants; Z87.19 Personal history of other diseases of the digestive system; Z98.890 Other specified postprocedural states; Z99.81 Dependence on supplemental oxygen
CPT/HCPCS: 36415; 36430; 71045; 80048; 80053; 82272; 83735; 84145; 84484; 85014; 85018; 85025; 86850; 86900; 86901; 86923; 93005; 93010; 94640; 94664; 94760; 94761; 94762; 96365; 96366; 99285-25; A9270; G0378; J0696; J1940; J2270; J2405; J2930; J7040; J7120; J7512; P9016

== ENCOUNTER 2023-10-06 09:36 | Inpatient (IN) | payer OTHER ==
[~2023-10-06] VITALS: Ht 198.1 cm; Wt 65.5 kg
[2023-10-06] VITALS (17 sets, daily range): BP systolic 76–180; BP diastolic 58–101
[~2023-10-06 09:36] MED LIST changes: +ALBU90OI INH; +BUSP5 PO; +PANT20 PO; +POTCHL20ER PO; +Prednisone10 MG PO
[2023-10-06 10:10] LABS: BASOPHILS ABSOLUTE AUTO 0.01 K/mm3 (0.00-0.23); BASOPHILS PERCENT AUTO 0 % (0-2); EOSINOPHILS PERCENT AUTO 0 % (0-6); Hematocrit 24.3 % (37.0-53.0); Hemoglobin 7.9 g/dL (13.5-17.5); IMMATURE GRAN ABSOLUTE AUTO 0.08 K/mm3 (0.00-0.10); IMMATURE GRAN PERCENT AUTO 1 % (0-1); LYMPHOCYTES ABSOLUTE AUTO 0.32 K/mm3 (0.84-5.20); LYMPHOCYTES PERCENT AUTO 2 % (21-46); MONOCYTES ABSOLUTE AUTO 0.96 K/mm3 (0.16-1.47); MONOCYTES PERCENT AUTO 7 % (4-13); Mean Corpuscular HGB 32.5 pg (26.0-34.0); Mean Corpuscular HGB Conc 32.5 g/dL (31.5-36.5); Mean Corpuscular Volume 100 fL (80-100); NEUTROPHILS ABSOLUTE AUTO 13.29 K/mm3 (1.96-9.15); NEUTROPHILS PERCENT AUTO 91 % (41-73); Platelet Count 128 K/mm3 (150-400); RDW Coefficient Variation 17.8 % (11.7-14.2); RDW Standard Deviation 65.3 fL (35.1-46.3); Red Blood Cell Count 2.43 M/mm3 (4.30-5.90); White Blood Cell Count 14.66 K/mm3 (4.00-11.30)
[2023-10-06 10:31] LABS: Albumin, Blood 2.9 g/dL (3.4-5.0); Albumin/Globulin Ratio 0.9 (0.8-1.8); Bilirubin, Total 0.4 mg/dL (0.1-1.0); Bun/Creatinine Ratio 23.3 (12.0-20.0); Calcium, Blood 8.5 mg/dL (8.5-10.1); Creatinine, Blood 2.83 mg/dL (0.60-1.20); Globulin, Blood 3.1 g/dL (2.2-4.0); Potassium, Blood 5.1 mmol/L (3.5-5.5)
[2023-10-06 12:45] LABS: Influenza A, PCR NEGATIVE (NEGATIVE); Influenza B, PCR NEGATIVE (NEGATIVE); Resp Syncytial Virus, PCR NEGATIVE (NEGATIVE); SARS-Cov-2 (COVID-19) PCR, MMC NEGATIVE (NEGATIVE)
--- NOTE | 2023-10-06 14:31 | NUR ---
PCU ADMIT PT BROUGHT TO PCU-08 BY HASMUKH FROM ER @ APPROX 1300. PT A&O X4, SLID OVER FROM BJORNRNEY TO PCU BED D/T WEAKNESS. PT VSS. SPO2 > 92% ON 12L NRB UPON ARRIVAL. PT TRANSITIONED TO 11L HI-SILVANO NC. MONITOR SHOWING SR, HR 90s. PT REPORTS INABILITY TO KNOW WHEN HE NEEDS TO VOID OR HAVE BM, STATING "IT JUST COMES ON." PT REPORTING LAST BM "THIS MORNING AROUND 6 O'CLOCK. IT JUST CAME OUT OF ME SO QUICK." PT REPORTS "IT WAS BLACK & TARRY. IT WAS SO HARD FOR ME TO CLEAN OFF THE FLOOR." CONFOM CATH & ATTENDS PLACED ON PT W/ PT CONSENT. PT DENYING CP UPON ARRIVAL TO UNIT. THIS RN BACK TO PT RM APPROX 1400 W/ PT REPORT OF CP & "SHAKING" ACTIVITY WHILE THIS NURSE OUT OF RM. IN 10 MINUTE SPAN OF THIS RN IN PT RM, PT SEEN W/ FULL BODY JERKING RAPIDLY FOR APPROX 5-10 SECONDS EACH TIME. PT DID NOT LOOSE CONSCIOUSNESS & WAS ABLE TO TALK TO THIS RN WHILE BODY JERKING RAPIDLY. THIS RN NOTIFIED MD MESSINA OF EVENTS & PT NOW HAVING 7/10 CP. MD MESSINA STATES WILL PUT IN ORDERS.
[2023-10-06 15:16] LABS: Hemoglobin 7.8 g/dL (13.5-17.5)
--- NOTE | 2023-10-06 16:07 | NUR ---
CALL TO MD CALL TO MD TO REPORT LACTIC ACID 3.1. MD W/ NO NEW ORDERS AT THIS TIME.
--- NOTE | 2023-10-06 17:41 | NUR ---
Met with spouse earlier today at nurses station as she is inquiring about an advanced directive. Provided advanced directive and instructed on each section to complete. Offered therapeutic listening as spouse Srinivasan expresses mild emotional distress regarding Pt's health. Offered therapeutic listening. Spouse agreeable for this RN to return later today to visit with her and Pt. 77 year old male admittted to the hospital for Dysnpnea, Elevated Traponin, and Renal Failure. Pt's medical history and comorbidities include: Combined CHF, COPD-O2 dependent, Interstitial Lung Disease, Pulmonary Cachexia, CAD, Afib, CKD3, PVD, AAA S/P Repair, HTN, BPH, Moderate Mitral Regurgitation, and Hyperlipiemia. Pt has multiple hospitalizations over the last 6 months. Pt is known to this web content writer from previous hospital stay. Pt (Brady) is resting in bed upon arrival wearing non rebreather. Brady's spouse Cecil, and other close family friends at bedside. Brady and Cecil report friends are their family. Brady reports remembering this RN and conversations that took place back in January including advanced care planning and code status wishes. Brady reports wishes remain the same of wanting to be DNR but was Full Code after considering Cecil's wishes. Revisted code status wishes and educated Kit on life sustaining treatments including risks and implications to CPR/Intubation. Cecil reports now being in agreement with Pt's wishes of DNR. Provided education on disease process including trajectory. Offered therapeutic listeing and answered questions. Discussed considering hospice. Family friend is a hospice nurse. Educated on hospice philosophy with V/U made by Brady and Cecil. Pt and family agreeable for hospice services but would like to continue current treatment plan for optimization before D/C with hospice. Pt and family elect [facility] upon D/C. Provided Palliative Care contact information and instructed Kit to call with any questions or concerns. Spoke with Primary RN Blanche and discussed case. Spoke with Dr Cabral and discussed case. Placed DNR order for Pt in [facility] per V/O from Dr Cabral. Plan: Optimize Pt prior to D/C with [facility]. Will assist with completing POLST before D/C. Will continue supportive and therapeutic visits. Palliative Care will remain available
--- NOTE | 2023-10-06 17:59 | NUR ---
CALL TO MD family came out of room saying patient is having a seizure. this rn and bar rn went into room and patient had full body shakes and eyes closed. this rn touched the patients leg and said his name and patient opened his eyes and shaking stopped besdies right arm. right arm was shaking for approx 2mins before it stopped. patient was awake during this time and talking and said he could feel before he started having an episodes. these episodes started today. md notifed and no new orders at this time.
--- NOTE | 2023-10-06 18:10 | NUR ---
call to this rn called md centeno to inform her that family came out of the room saying patients shaking and jerking motions are getting worse and would like to see the doctor. this rn left a voicemail on md centeno phone. no new orders and no phone call back at this time.
[2023-10-06 20:29] LABS: Hematocrit 23.8 % (37.0-53.0); Hemoglobin 7.7 g/dL (13.5-17.5)
--- NOTE | 2023-10-06 22:10 | NUR ---
SIGNIFICANT EVENT: *LATE ENTRY: PATIENT CONVERTED INTO AFIB WITH RVR. 150-170'S. SOFT BLOOD PRESSURES, MAP OF 55-65, IMPROVED MUCH WITH AMIO BOLUS ORDERED BY DR. CAN. CONVERTED BACK TO SR APPROXIMATELY 2310. DURING EVENT PATIENT HAS BEEN HAVING INCREASED CHEST PAIN, INTO SHOULDER JAW, PAIN IN BLE. PATIENT EDUCATED. PAIN RESOLVED AFTER CONVERSION. PATIENT TOLERATED WELL FOR SITUATION, OXYGEN DEMAND AND SOB WERE ALSO NOTED DURING EVENT WILL CONTINUE TO MONITOR.
[2023-10-07] VITALS (25 sets, daily range): BP systolic 85–121; BP diastolic 61–98
[2023-10-07 01:46] LABS: Hematocrit 23.4 % (37.0-53.0); Hemoglobin 7.6 g/dL (13.5-17.5)
--- NOTE | 2023-10-07 02:40 | NUR ---
ASSUMPTION OF CARE: PATIENT IS ALERT AND ORIENTED X 4 PATIENT HAS BEEN COOPERATIVE, PLEASANT AND USING THE CALL LIGHT APPROPRIATE. CUURENLTY HYPERTENSIVE IN THE 170'S CURRENLTY ON 15L NRB, SPO2 >96%. DENYING CHEST PAIN AT THIS TIME, FAMILY AT THE START OF THE SHIFT SHORTLY LEFT AFTER ASSUMPTION. DAY WITH CONCERNS OF URINATION, VOIDING, VERY MINIMALLY AT THIS TIME, WILL REASSESS 0000. AFEBRILE.
[2023-10-07 04:10] LABS: Hematocrit 22.9 % (37.0-53.0); Hemoglobin 7.3 g/dL (13.5-17.5); Mean Corpuscular HGB 31.5 pg (26.0-34.0); Mean Corpuscular HGB Conc 31.9 g/dL (31.5-36.5); Mean Corpuscular Volume 99 fL (80-100); Mean Platelet Volume 11.7 fL (9.1-12.4); Platelet Count 106 K/mm3 (150-400); RDW Coefficient Variation 17.5 % (11.7-14.2); RDW Standard Deviation 63.3 fL (35.1-46.3); Red Blood Cell Count 2.32 M/mm3 (4.30-5.90); White Blood Cell Count 9.13 K/mm3 (4.00-11.30)
[2023-10-07 04:40] LABS: Albumin, Blood 2.8 g/dL (3.4-5.0); Bilirubin, Total 0.3 mg/dL (0.1-1.0); Bun/Creatinine Ratio 23.5 (12.0-20.0); Calcium, Blood 8.3 mg/dL (8.5-10.1); Creatinine, Blood 3.4 mg/dL (0.60-1.20); Globulin, Blood 2.9 g/dL (2.2-4.0); Magnesium, Blood 2.9 mg/dL (1.6-2.4); Potassium, Blood 4.4 mmol/L (3.5-5.5); Total Protein, Blood 5.7 g/dL (6.4-8.2)
[2023-10-07 04:43] LABS: PCO2 Arterial 37.2 mmHg (35-45); PO2 Arterial 77.7 mmHg (80-100); pH Blood Arterial 7.34 (7.35-7.45)
--- NOTE | 2023-10-07 06:22 | NUR ---
EOS: CHANGES FROM ASSUMPTION OF CARE IS THAT HE IS NOW ON CPAP CURRENT SETTINGS OF 8 CM, 40%. SPO2 96-97%. 82. PAROX AFIB, SR BBB, PVC. PATIENT HAS BEEN VERY COOPERATIVE WITH CARE, ALERT AND ORIENTED. PATIENT HAS BEEN BLADDER SCNANED Q3-4 HOURS NEVER EXCEEDING 350mL, PROVIDER CONTACTED MULTIPLE TIMES THROUGH THE NIGHT 1 TIME OF 80mG OF LASIX, GIVEN. ADDITIONALLY TROPONIN HAS BEEN INCREASING THROUGHOUT HE NIGHT PROVIDER INFORMED EACH TIME AND CHARGE. NO REPEAT AT THIS TIME. UNLESS CHANGE IN PATIENT CONDITION. PATIENT IS OVERALL FEELING BETTER WITH CPAP. LASIX GIVEN LATER THIS AM WILL SEE IF ABLE TO VOID. CONDOM CATH PLACED FOR PATIENT SAFETY TO DECREASE WOB AND INCREASE RESERVE. PATIENT AGREEABLE TO PLAN EDUCATED FOR >1HOUR IN TOTAL. MEDS INTERVENTIONS, ANGINA, ARRHYTHMIA. CURRENTLY DENYING CHEST PAIN PRESSURE OR SOB. UPDATED MULTIPLE TIMES THROUGH THE NIGHT. VBG SHOWED SOME HYPOXIA THAT IS WHEN RT STARTED ON CPAP, V60 AT THIS TIME 40% AT 8.
--- NOTE | 2023-10-07 10:28 | NUR ---
"Spiritual Care | Palliative Nurse/Pt. Request Pt. is awake in bed. Spouse is present as Chelsea Landry is giving the family prognosis. Facilitated update from family since Pt. was discharged on Sunday. Spouse verbalized that he would be going home on hospice. Listened with empathy, and pastoral care is given to spouse and Pt. Prayed with Pt. Pt. requested this aluminum siding installer to request Chaplain Jacob to visit on Sunday. Pt. verbalized gratitude for the spiritual care visit. Suzanneutharley Heel [employer]ucer[employer]iano Albarado."
--- NOTE | 2023-10-07 10:30 | NUR ---
AM NOTE PT ON CPAP UPON THIS RN ASSUMING CARE BUT CAN TOLERATE 13L HIGH FLOW NC BREAK TO MAINTAIN O2 >95%. PT WENT TO NUCLEAR MEDICINE VIA CART AT APPROX. 0845 W/ NON-REBREATHER 13L TO MAINTAIN O2 AND REPORTED NO ISSUES LAYING FLAT FOR IMAGING. ORDERED FERRELICIT AND ZITHROMAX LATE DUE TO PT BEING OUT OF ROOM AND BLOOD ADMINISTRATION ORDER, BLOOD SLIP SENT BY THIS RN AT APPROX. 1025. PT IS ALERT AND ORIENTED X 4, HR AND BP STABLE, SBP NOTED TO BE 109. HE DENIES FEELINGS OF CHEST PAIN/PRESSURE, NAUSEA/VOMITTING OR LIGHTHEADEDNESS. IS AT BEDSIDE, CALL LIGHT IS W/IN REACH.
--- NOTE | 2023-10-07 11:40 | NUR ---
Supportive visit this AM. Pt's spouse Kit outside of Pt's room and is tearful. Offered emotional support and therapeutic listening. Spouse and this RN goes in to offer supportive visit for Pt. Family friend Celai also at bedside. Assisted Pt with completing POLST form and AD. Offered therapeutic listening and aswered questions. Pt and family express appreciation and report no other concerns at this time. Palliative Care will remain available
--- NOTE | 2023-10-07 17:38 | NUR ---
SHIFT SUMMARY PT IS ALERT AND ORIENTED X 4. PER TELE MONITORING HR IS SINUS RYTHM 70-80'S, BP IS STABLE. SPO2 HAS BEEN MAINTAINED VIA CPAP PRESSURE 8 @ 45% FIO2 OR HIGH FLOW NC 9-13L. PT HAS DENIED FEELINGS OF CHEST PAIN/PRESSURE, HE HAS DENIED FEELINGS OF LIGHTHEADEDNESS/DIZZINESS, NAUSEA/VOMITTING. HE DID REPORT THAT HE HAS HAD DECREASED APPETITE X 6 DAYS. HE IS TREMULOUS AT TIMES WHICH APPEARS SEIZURE LIKE IN MOVEMENT, HE REPORTED TREMORS ARE NOT A NEW SYMPTOM. PRN BLADDER SCANNING DURING SHIFT DUE TO INABILITY OF URGE TO VOID, MOST RECENT BLADDER SCAN SHOWED VOLUME OF 117. 1 UNIT OF PRBC GIVEN DURING SHIFT. PT DID GO DOWN TO IMAGING FOR NUCLEAR MEDICINE LUNG SCAN AND WAS ABLE TO TRANSFER INDEPENDENTLY W/ ASSIST MANAGEING LINES/CORDS BUT HAS OTHERWISE REQUESTED TO STAY IN BED RATHER THAN RECLINER CHAIR. PG IN CARRIE IS SALINE LOCKED, IV IN NADIRA IS SALINE LOCKED. PT NOW APPEARS TO BE WATCHING TV, CALL LIGHT IS W/IN REACH.
--- NOTE | 2023-10-07 19:42 | NUR ---
AOC: PATIENT HAS BEEN IMPROVING SINCE EOS, VQ NEGATIVE, AMIO ORALLY, PLAN FOR HOME ON HOSPICE ONCE STABLE. PATIENT LAYING IN BED HOB >30' CURRENTLY ON 13L FOR SPO2 88%. DENIES CHEST PAIN PRESSURE OR SOB. WANTS TO WEAR CPAP FOR SLEEP. NEW IV NADIRA. ENSURE AT BEDSIDE. VSS. AFEBRILE AT THIS TIME.
[2023-10-08 04:15] LABS: Hematocrit 23.8 % (37.0-53.0); Hemoglobin 7.9 g/dL (13.5-17.5); Mean Corpuscular HGB 31.9 pg (26.0-34.0); Mean Corpuscular HGB Conc 33.2 g/dL (31.5-36.5); Mean Corpuscular Volume 96 fL (80-100); Mean Platelet Volume 11.4 fL (9.1-12.4); NRBC ABSOLUTE 0.02 K/mm3 (0.00-0.02); NRBC Auto 0.3 /100 WBC (0.0-0.2); Platelet Count 111 K/mm3 (150-400); RDW Coefficient Variation 18.2 % (11.7-14.2); RDW Standard Deviation 62.8 fL (35.1-46.3); Red Blood Cell Count 2.48 M/mm3 (4.30-5.90); White Blood Cell Count 7.47 K/mm3 (4.00-11.30)
[2023-10-08 04:38] LABS: Albumin, Blood 2.6 g/dL (3.4-5.0); Albumin/Globulin Ratio 0.9 (0.8-1.8); Bilirubin, Total 0.3 mg/dL (0.1-1.0); Bun/Creatinine Ratio 21.7 (12.0-20.0); Calcium, Blood 7.8 mg/dL (8.5-10.1); Creatinine, Blood 5.12 mg/dL (0.60-1.20); Globulin, Blood 2.8 g/dL (2.2-4.0); Potassium, Blood 4.6 mmol/L (3.5-5.5); Total Protein, Blood 5.4 g/dL (6.4-8.2)
--- NOTE | 2023-10-08 04:41 | NUR ---
NO CHANGES FROM ASSUMPTION OF CARE, PATIENT HAS BEEN OFF AND ON CPAP THROUGH THE NIGHT STILL DENYING CHEST PAIN PRESSURE OR SOB. PATIENT HAS BEEN COOPERATIVE WITH CARE, PLEASANT, ABLE TO SIT AT BEDSIDE FOR >30 MINUTES. BLADDER SCAN <200, NO VOID FOR THIS RN. LABS SENT VIA POWERGLIDE. PATIENT SLEPT MOST THE NIGHT, SPO2 >88%, VSS BI CIBCERBS FRIDeirdre THIS RN
[2023-10-08 07:53] VITALS: BP 114/62
[2023-10-08 11:42] VITALS: BP 111/78
--- NOTE | 2023-10-08 13:26 | NUR ---
Spiritual care visit conducted. Patient is known to this proposal writer from prior hospital admissions. Patient tells me about the events that led to his return to the hospital, the plan to d/c him home on hospice and his grateful attitude to not be in pain at a time like this. He shares about and dying, about his concerns for his spouse, Kit, and his deep connection to God that gives him abundant peace. We laugh, cry and pray. We talk about how to best support Kit and how to take in every moment. I will continue to remin available
[2023-10-08 15:52] VITALS: BP 111/82
--- NOTE | 2023-10-08 17:30 | NUR ---
SHIFT SUMMARY; ASSUMED CARE AT 0700. A/A/X4 DURING SHIFT. CPAP WHEN NAPPING, 6L 02 VIA NC WHILE AWAKE. MOVES SELF ON GURNEY NEEDED, FEEDS SELF WITHOUT DIFFICULTY. NO URINE OUTPUT ON SHIFT, BLADDER SCAN PRN, NO URINARY RETENTION. VSS, PLAN FOR DISCHARGE ON HOSPICE TOMORROW. WILL CONTINUE TO MONITOR AND TREAT UNTIL CHANGE OF SHIFT.
[2023-10-08 19:30] VITALS: BP 97/76
[2023-10-08 21:19] VITALS: BP 109/78
[2023-10-08 23:58] VITALS: BP 101/71
[2023-10-09 03:42] VITALS: BP 103/71
--- NOTE | 2023-10-09 04:03 | NUR ---
SHIFT SUMMARY PT RESTED WELL. CPAP WITH 02 BLEED IN DURING SLEEP. PT HAD X1 EPISODE OF CHEST PAIN EARLY ON THIS SHIFT THAT WAS ALLEVIATED WITH X1 DOSE SL NITRO. REPOSITIONING PT IN BED PRN. PT UNABLE TO VOID. BLADDER SCAN OF 240CC. PT DENIES BLADDER PRESSURE OR BLADDER PAIN. TELE REMAINS SR WITH BBB. VSS. PT USES CALL LIGHT APPROPRIATELY. PLAN TO POSSIBLY DC HOME WITH HOSPICE TODAY.
[2023-10-09 08:39] VITALS: BP 110/81
[2023-10-09 12:38] VITALS: BP 98/62
[2023-10-09] MEDS ORDERED: MIRALAX17 GM PO (13:08)
[2023-10-09] MEDS ORDERED: Amiodarone HCl200 MG PO (13:08)
--- NOTE | 2023-10-09 15:34 | NUR ---
Spiritual care visit conducted. Patient is lying in bed and alert. Patient talks about his peace and gorge about his situation and his deep concern for his spouse and her challenges both now and in the coming days. Patient expresses his plan to make the most of the days he has and shares about the wonder and beauty of the john that he has. I provide theraeputic listening and prayer. Patient becomes tearful during the prayer which causes the family who are present to be upset. Patient explains that he is deply touch by the prayer and that they are tears of gorge and gratitude. Patient blesses me and voices his appreciation for the visits and care and shwed signs of being comforted.
--- NOTE | 2023-10-09 16:20 | NUR ---
DISCHARGE HOME W/ HOSPICE PT A&O X4. VSS. SPO2 > 90% ON 14L HI-SILVANO NC. CPAP AT BEDSIDE. HOME O2 DELIVERED TO PT RM PRIOR TO DISCHARGE. PIVs REMOVED. PT DC HOME ON HOSPICE, TAKEN BY EMS IN [facility] @ APPROX 1620 W/ PT DAUGHTER ACCOMPANYING.
== END 2023-10-09 16:18 | disposition hospice, home (50) | DRG 871 ==
LOC: ER 09:36 → PCU 11:35
PROVIDERS: Emergency Medicine; ADMIT Internal Medicine
PROC: 5A09357 Assistance with Respiratory Ventilation, Less than 24 Consecutive Hours, Continuous Positive Airway Pressure (ICD-10-PCS; principal; 2023-10-07)
PROC: 4A133R1 Monitoring of Arterial Saturation, Peripheral, Percutaneous Approach (ICD-10-PCS; 2023-10-07)
PROC: 30233N1 Transfusion of Nonautologous Red Blood Cells into Peripheral Vein, Percutaneous Approach (ICD-10-PCS; 2023-10-07)
PROC: 5A0935A Assistance with Respiratory Ventilation, Less than 24 Consecutive Hours, High Flow/Velocity Cannula (ICD-10-PCS; 2023-10-07)
PROC: 3E03329 Introduction of Other Anti-infective into Peripheral Vein, Percutaneous Approach (ICD-10-PCS; 2023-10-07)
DX: A41.9 Sepsis, unspecified organism (principal); E43 Unspecified severe protein-calorie malnutrition; J18.9 Pneumonia, unspecified organism; J96.21 Acute and chronic respiratory failure with hypoxia; I50.43 Acute on chronic combined systolic (congestive) and diastolic (congestive) heart failure; I21.A1 Myocardial infarction type 2; N17.0 Acute kidney failure with tubular necrosis; D62 Acute posthemorrhagic anemia; Z66 Do not resuscitate; J84.9 Interstitial pulmonary disease, unspecified; J44.0 Chronic obstructive pulmonary disease with (acute) lower respiratory infection; I87.1 Compression of vein; N13.8 Other obstructive and reflux uropathy; I42.0 Dilated cardiomyopathy; I13.0 Hypertensive heart and chronic kidney disease with heart failure and stage 1 through stage 4 chronic kidney disease, or unspecified chronic kidney disease; K92.2 Gastrointestinal hemorrhage, unspecified; Z68.1 Body mass index [BMI] 19.9 or less, adult; I25.10 Atherosclerotic heart disease of native coronary artery without angina pectoris; I73.9 Peripheral vascular disease, unspecified; I48.0 Paroxysmal atrial fibrillation; D69.6 Thrombocytopenia, unspecified; N40.1 Benign prostatic hyperplasia with lower urinary tract symptoms; R33.8 Other retention of urine; G47.00 Insomnia, unspecified; N18.32 Chronic kidney disease, stage 3b; I27.20 Pulmonary hypertension, unspecified; E88.A Wasting disease (syndrome) due to underlying condition; F43.10 Post-traumatic stress disorder, unspecified; K21.9 Gastro-esophageal reflux disease without esophagitis; E78.5 Hyperlipidemia, unspecified; Z99.81 Dependence on supplemental oxygen; Z95.1 Presence of aortocoronary bypass graft; Z95.820 Peripheral vascular angioplasty status with implants and grafts; Z95.5 Presence of coronary angioplasty implant and graft; Z87.891 Personal history of nicotine dependence; Z79.01 Long term (current) use of anticoagulants; Z79.52 Long term (current) use of systemic steroids; Z11.52 Encounter for screening for COVID-19
CPT/HCPCS: 0241U; 36415; 36600; 71046; 71250; 78580; 80053; 82728; 82803; 83540; 83550; 83605; 83735; 83880; 84145; 84443; 84484; 85014; 85018; 85025; 85027; 86850; 86900; 86901; 86923; 87040; 93005; 93010; 93308; 93321; 94640; 94660; 94664; 94762; 99285-25; A9270; A9540; C9113; J0282; J0456; J0696; J1940; J2405; J2916; J7050; J7512; P9016